=== PATIENT | female | born 1940 | race Caucasian/White ===

== ENCOUNTER 2017-10-24 20:14 | Emergency (ER) | payer MEDICARE, OTHER ==
[~2017-10-24] VITALS: Ht 162.6 cm; Wt 79.4 kg
[~2017-10-24 20:14] MED LIST: ALBU90OI INH; ALPR.25 PO; Bactrim Ds Tab1 EACH PO; CHOL10002 PO; ESCI10 PO; ESCI5 PO; HYDACE5325 PO; LEVFLO500 PO; LEVSOD50 PO; LITH300C PO; METF500 PO; Mupirocin22 GM TOP; NYST100SU MT; Norco 5-325 Ta1 EACH PO; OXYACE5T PO; PROM25 PO; RABE20 PO; RXLORA1 PO; RXOXYACE PO; TRAM50 PO; TRAZ50 PO
[2017-10-24 20:46] LABS: BASOPHILS ABSOLUTE AUTO 0.02 K/mm3 (0.00-0.23); BASOPHILS PERCENT AUTO 0 % (0-2); EOSINOPHILS ABSOLUTE AUTO 0.11 K/mm3 (0.00-0.68); EOSINOPHILS PERCENT AUTO 1 % (0-6); Hematocrit 39.4 % (33.0-51.0); Hemoglobin 12.9 g/dL (11.5-16.0); IMMATURE GRAN ABSOLUTE AUTO 0.04 K/mm3 (0.00-0.10); IMMATURE GRAN PERCENT AUTO 0 % (0-1); LYMPHOCYTES ABSOLUTE AUTO 1.74 K/mm3 (0.84-5.20); LYMPHOCYTES PERCENT AUTO 16 % (21-46); MONOCYTES ABSOLUTE AUTO 0.55 K/mm3 (0.16-1.47); MONOCYTES PERCENT AUTO 5 % (4-13); Mean Corpuscular HGB 29.5 pg (26.0-34.0); Mean Corpuscular HGB Conc 32.7 g/dL (31.5-36.5); Mean Corpuscular Volume 90 fL (80-100); Mean Platelet Volume 9.8 fL (9.1-12.4); NEUTROPHILS ABSOLUTE AUTO 8.25 K/mm3 (1.96-9.15); NEUTROPHILS PERCENT AUTO 77 % (41-73); Platelet Count 276 K/mm3 (150-400); RDW Coefficient Variation 13.3 % (11.7-14.2); RDW Standard Deviation 43.9 fL (35.1-46.3); Red Blood Cell Count 4.38 M/mm3 (3.80-5.20); White Blood Cell Count 10.71 K/mm3 (4.00-11.30)
[2017-10-24 21:07] LABS: Alanine Aminotransfer (ALT/SGP 24 U/L (12-78); Albumin, Blood 3.9 g/dL (3.4-5.0); Alk Phos 110 U/L (50-136); Anion Gap 7 mmol/L (6-16); Aspartate Aminotrans (AST/SGOT 15 U/L (12-37); Bilirubin, Total 0.6 mg/dL (0.1-1.0); Blood Urea Nitrogen 12 mg/dL (8-24); Bun/Creatinine Ratio 14.3 (12.0-20.0); CO2, Blood 24 mmol/L (21-32); Calcium, Blood 8.9 mg/dL (8.5-10.1); Chloride, Blood 106 mmol/L (98-108); Creatinine, Blood 0.84 mg/dL (0.40-1.00); Globulin, Blood 3.9 g/dL (2.2-4.0); Glomerular Filtration Rate >60 (60-); Glucose, Blood 183 mg/dL (70-99); Sodium, Blood 137 mmol/L (136-145); Total Protein, Blood 7.8 g/dL (6.4-8.2); Troponin I <0.015 ng/mL (0.000-0.040)
[2017-10-24 22:44] LABS: Source, Urine Clean Catch
[2017-10-24 22:49] LABS: Bilirubin, Urine Neg (Neg); Blood, Urine Neg (Neg); Glucose Qualitative, Urine Neg (Neg); Ketones, Urine 1+ (Neg); Leukocyte Esterase, Urine Neg (Neg); Nitrite, Urine Neg (Neg); Protein, Urine Neg (Neg); Urobilinogen, Urine NORM (Normal)
[2017-10-24 22:59] LABS: Appearance, Urine Clear (Clear); Color, Urine Yellow (P-Yellow)
[2017-10-24] MEDS ORDERED: Vistaril25 MG PO (23:57)
[2017-10-24] MEDS ORDERED: Protonix40 MG PO (23:57)
== END 2017-10-25 00:19 | disposition home or self-care (01) ==
LOC: ER 20:14
PROVIDERS: Emergency Medicine
DX: F41.0 Panic disorder [episodic paroxysmal anxiety] (principal); I10 Essential (primary) hypertension; F31.9 Bipolar disorder, unspecified; E03.9 Hypothyroidism, unspecified; Z88.0 Allergy status to penicillin; Z88.1 Allergy status to other antibiotic agents; Z79.84 Long term (current) use of oral hypoglycemic drugs; Z79.899 Other long term (current) drug therapy; K21.9 Gastro-esophageal reflux disease without esophagitis; R07.9 Chest pain, unspecified; Z88.8 Allergy status to other drugs, medicaments and biological substances
CPT/HCPCS: 36415; 71046; 80053; 81003; 84484; 85025; 93005; 93010; 96374; 99283; J2060

== ENCOUNTER 2017-10-26 14:37 | Emergency (ER) | payer MEDICARE, OTHER ==
[~2017-10-26] VITALS: Ht 162.6 cm; Wt 79.4 kg
[~2017-10-26 14:37] MED LIST changes: +Protonix40 MG PO; +Vistaril25 MG PO
== END 2017-10-26 18:46 | disposition home or self-care (01) ==
LOC: ER 14:37
DX: S00.83XA Contusion of other part of head, initial encounter (principal); W18.30XA Fall on same level, unspecified, initial encounter; Z88.8 Allergy status to other drugs, medicaments and biological substances; Z88.1 Allergy status to other antibiotic agents; Z79.899 Other long term (current) drug therapy; Z79.84 Long term (current) use of oral hypoglycemic drugs; E11.9 Type 2 diabetes mellitus without complications; F31.9 Bipolar disorder, unspecified; E03.9 Hypothyroidism, unspecified; I10 Essential (primary) hypertension
CPT/HCPCS: 70450; 72125; 99284

== ENCOUNTER 2018-01-12 13:17 | Emergency (ER) | payer MEDICARE, OTHER ==
[~2018-01-12] VITALS: Ht 162.6 cm; Wt 77.1 kg
[2018-01-12] MEDS ORDERED: Zofran Odt8 MG SL (14:53)
[2018-01-12] MEDS ORDERED: Ultram50 MG PO (14:53)
[2018-01-12] MEDS ORDERED: METPRE4DP PO (14:53)
== END 2018-01-12 14:57 | disposition home or self-care (01) ==
LOC: ER 13:17
DX: M54.31 Sciatica, right side (principal); Z88.1 Allergy status to other antibiotic agents; Z88.8 Allergy status to other drugs, medicaments and biological substances; Z79.899 Other long term (current) drug therapy; Z79.84 Long term (current) use of oral hypoglycemic drugs; E11.9 Type 2 diabetes mellitus without complications; I10 Essential (primary) hypertension; E03.9 Hypothyroidism, unspecified; F31.9 Bipolar disorder, unspecified; F32.9 Major depressive disorder, single episode, unspecified
CPT/HCPCS: 96372; 99283; J3010

== ENCOUNTER 2019-01-14 11:05 | Emergency (ER) | payer MEDICARE, OTHER ==
[~2019-01-14] VITALS: Ht 167.6 cm; Wt 82.5 kg
[~2019-01-14 11:05] MED LIST changes: +METPRE4DP PO; +Ultram50 MG PO; +Zofran Odt8 MG SL
== END 2019-01-14 12:53 | disposition home or self-care (01) ==
LOC: ER 11:05
DX: S00.12XA Contusion of left eyelid and periocular area, initial encounter (principal); M25.561 Pain in right knee; E11.9 Type 2 diabetes mellitus without complications; I10 Essential (primary) hypertension; E03.9 Hypothyroidism, unspecified; W01.0XXA Fall on same level from slipping, tripping and stumbling without subsequent striking against object, initial encounter
CPT/HCPCS: 70450; 93005; 93010; 99284-25

== ENCOUNTER 2020-04-17 04:29 | Emergency (ER) | payer MEDICARE, OTHER ==
[~2020-04-17] VITALS: Ht 162.6 cm; Wt 76.2 kg
[~2020-04-17 04:29] MED LIST changes: +IBUP600 PO; +OMEPRAZOLE MAGN20 MG PO
[2020-04-17] MEDS ORDERED: LIDO700A20 TOP (06:44)
[2020-04-17] MEDS ORDERED: PRED20 PO (06:44)
[2020-04-20] MEDS ORDERED: Percocet 5-3251 EACH PO (08:44)
[2020-05-01] MEDS ORDERED: KETO10 PO (05:35)
== END 2020-04-17 07:08 | disposition home or self-care (01) ==
LOC: ER 04:29
DX: M25.552 Pain in left hip (principal); Z88.0 Allergy status to penicillin; Z88.1 Allergy status to other antibiotic agents; Z88.8 Allergy status to other drugs, medicaments and biological substances; Z79.84 Long term (current) use of oral hypoglycemic drugs; Z79.899 Other long term (current) drug therapy; E11.9 Type 2 diabetes mellitus without complications; I10 Essential (primary) hypertension; E03.9 Hypothyroidism, unspecified; F31.9 Bipolar disorder, unspecified
CPT/HCPCS: 72192; 96372; 99283-25; A9270; J1885

== ENCOUNTER 2020-05-24 13:50 | Emergency (ER) | payer MEDICARE, OTHER ==
[~2020-05-24] VITALS: Ht 162.6 cm; Wt 76.2 kg
[~2020-05-24 13:50] MED LIST changes: +KETO10 PO; +LIDO700A20 TOP; +PRED20 PO; +Percocet 5-3251 EACH PO
[2020-05-24 14:42] LABS: BASOPHILS ABSOLUTE AUTO 0.04 K/mm3 (0.00-0.23); BASOPHILS PERCENT AUTO 0 % (0-2); EOSINOPHILS ABSOLUTE AUTO 0.15 K/mm3 (0.00-0.68); EOSINOPHILS PERCENT AUTO 1 % (0-6); Hematocrit 42.7 % (33.0-51.0); Hemoglobin 13.9 g/dL (11.5-16.0); IMMATURE GRAN ABSOLUTE AUTO 0.04 K/mm3 (0.00-0.10); IMMATURE GRAN PERCENT AUTO 0 % (0-1); LYMPHOCYTES ABSOLUTE AUTO 2.04 K/mm3 (0.84-5.20); LYMPHOCYTES PERCENT AUTO 17 % (21-46); MONOCYTES ABSOLUTE AUTO 0.69 K/mm3 (0.16-1.47); MONOCYTES PERCENT AUTO 6 % (4-13); Mean Corpuscular HGB 29.8 pg (26.0-34.0); Mean Corpuscular HGB Conc 32.6 g/dL (31.5-36.5); Mean Corpuscular Volume 92 fL (80-100); NEUTROPHILS ABSOLUTE AUTO 8.94 K/mm3 (1.96-9.15); NEUTROPHILS PERCENT AUTO 75 % (41-73); Platelet Count 262 K/mm3 (150-400); RDW Coefficient Variation 12.6 % (11.7-14.2); RDW Standard Deviation 42.7 fL (35.1-46.3); Red Blood Cell Count 4.66 M/mm3 (3.80-5.20)
[2020-05-24 15:04] LABS: Albumin, Blood 3.6 g/dL (3.4-5.0); Albumin/Globulin Ratio 0.9 (0.8-1.8); Bilirubin, Total 0.3 mg/dL (0.1-1.0); Bun/Creatinine Ratio 31.1 (12.0-20.0); Calcium, Blood 9.3 mg/dL (8.5-10.1); Globulin, Blood 3.9 g/dL (2.2-4.0); Potassium, Blood 4.9 mmol/L (3.5-5.5); Total Protein, Blood 7.5 g/dL (6.4-8.2)
[2020-05-24] MEDS ORDERED: FURO20 PO (15:54)
[2020-05-24] MEDS ORDERED: MECL25 PO (15:54)
[2020-05-24 16:35] LABS: Free Thyroxine 2.03 ng/dL (0.70-1.60)
[2020-05-24 16:36] LABS: Thyroid Stimulating Hormone 3.11 uIU/mL (0.360-4.800)
[2020-05-24 17:01] LABS: Lithium 0.45 mmol/L (0.60-1.20)
[2020-05-24] MEDS ORDERED: Valium5 MG PO (17:22)
[2020-05-24] MEDS ORDERED: Transderm-Scop1 EACH TOP (17:22)
[2020-05-24] MEDS ORDERED: Reglan10 MG PO (17:22)
[2020-05-24] MEDS ORDERED: Pepcid20 MG PO (17:36)
== END 2020-05-24 17:58 | disposition home or self-care (01) ==
LOC: ER 13:50
PROVIDERS: Physician Assistant
DX: R42 Dizziness and giddiness (principal); R11.2 Nausea with vomiting, unspecified; R51 Headache; E11.9 Type 2 diabetes mellitus without complications; E03.9 Hypothyroidism, unspecified; I10 Essential (primary) hypertension; F31.9 Bipolar disorder, unspecified; Z88.1 Allergy status to other antibiotic agents; Z88.8 Allergy status to other drugs, medicaments and biological substances; Z79.84 Long term (current) use of oral hypoglycemic drugs; Z79.899 Other long term (current) drug therapy
CPT/HCPCS: 36415; 70450; 80053; 80178; 83690; 84439; 84443; 85025; 96374; 96375; 99284-25; J1200; J2765

== ENCOUNTER 2020-06-01 20:45 | Emergency (ER) | payer MEDICARE, OTHER ==
[~2020-06-01] VITALS: Ht 162.6 cm; Wt 76.2 kg
[~2020-06-01 20:45] MED LIST changes: +FURO20 PO; +MECL25 PO; +Pepcid20 MG PO; +Reglan10 MG PO; +Transderm-Scop1 EACH TOP; +Valium5 MG PO
== END 2020-06-01 23:33 | disposition home or self-care (01) ==
LOC: ER 20:45
DX: S01.01XA Laceration without foreign body of scalp, initial encounter (principal); M54.5 Low back pain; E11.9 Type 2 diabetes mellitus without complications; E03.9 Hypothyroidism, unspecified; I10 Essential (primary) hypertension; F31.9 Bipolar disorder, unspecified; Z88.0 Allergy status to penicillin; Z88.1 Allergy status to other antibiotic agents; Z88.8 Allergy status to other drugs, medicaments and biological substances; Z79.84 Long term (current) use of oral hypoglycemic drugs; Z79.899 Other long term (current) drug therapy; W01.0XXA Fall on same level from slipping, tripping and stumbling without subsequent striking against object, initial encounter
CPT/HCPCS: 12001; 70450; 72125; 72220; 99284-25; A9270; A9270-GY

== ENCOUNTER 2020-06-05 16:09 | Observation (INO) | payer MEDICARE, OTHER ==
[~2020-06-05] VITALS: Ht 162.6 cm; Wt 76.2 kg
[2020-06-05 17:16] LABS: BASOPHILS ABSOLUTE AUTO 0.05 K/mm3 (0.00-0.23); BASOPHILS PERCENT AUTO 1 % (0-2); EOSINOPHILS ABSOLUTE AUTO 0.36 K/mm3 (0.00-0.68); EOSINOPHILS PERCENT AUTO 3 % (0-6); Hematocrit 40.6 % (33.0-51.0); Hemoglobin 13.1 g/dL (11.5-16.0); IMMATURE GRAN ABSOLUTE AUTO 0.03 K/mm3 (0.00-0.10); IMMATURE GRAN PERCENT AUTO 0 % (0-1); LYMPHOCYTES ABSOLUTE AUTO 1.41 K/mm3 (0.84-5.20); LYMPHOCYTES PERCENT AUTO 13 % (21-46); MONOCYTES ABSOLUTE AUTO 0.66 K/mm3 (0.16-1.47); MONOCYTES PERCENT AUTO 6 % (4-13); Mean Corpuscular HGB 29.5 pg (26.0-34.0); Mean Corpuscular HGB Conc 32.3 g/dL (31.5-36.5); Mean Corpuscular Volume 91 fL (80-100); Mean Platelet Volume 9.8 fL (9.1-12.4); NEUTROPHILS PERCENT AUTO 77 % (41-73); Platelet Count 250 K/mm3 (150-400); RDW Coefficient Variation 12.5 % (11.7-14.2); RDW Standard Deviation 41.6 fL (35.1-46.3); Red Blood Cell Count 4.44 M/mm3 (3.80-5.20); White Blood Cell Count 11.01 K/mm3 (4.00-11.30)
[2020-06-05 17:37] LABS: Alanine Aminotransfer (ALT/SGP 22 U/L (12-78); Albumin, Blood 3.3 g/dL (3.4-5.0); Albumin/Globulin Ratio 0.9 (0.8-1.8); Alk Phos 92 U/L (50-136); Anion Gap 4 mmol/L (6-16); Aspartate Aminotrans (AST/SGOT 13 U/L (12-37); Bilirubin, Total 0.3 mg/dL (0.1-1.0); Blood Urea Nitrogen 14 mg/dL (8-24); Bun/Creatinine Ratio 19.6 (12.0-20.0); CO2, Blood 24 mmol/L (21-32); Chloride, Blood 107 mmol/L (98-108); Creatinine, Blood 0.72 mg/dL (0.40-1.00); Globulin, Blood 3.7 g/dL (2.2-4.0); Glomerular Filtration Rate >60 (60-); Glucose, Blood 273 mg/dL (70-99); Potassium, Blood 4.3 mmol/L (3.5-5.5); Sodium, Blood 135 mmol/L (136-145)
[2020-06-05 17:56] LABS: Source, Urine Clean Catch
[2020-06-05 17:58] LABS: Bilirubin, Urine Neg (Neg); Blood, Urine Neg (Neg); Glucose Qualitative, Urine 2+ (Neg); Ketones, Urine Neg (Neg); Leukocyte Esterase, Urine 1+ (Neg); Nitrite, Urine Neg (Neg); Protein, Urine Neg (Neg); Specific Gravity, Urine 1.005 (1.003-1.022); Urobilinogen, Urine NORM (Normal)
[2020-06-05 18:05] LABS: Appearance, Urine Clear (Clear); Color, Urine Yellow (P-Yellow)
[2020-06-05 18:06] LABS: Bacteria Few /hpf; Red Blood Cells, Urine 0-2 /hpf (0-2); Squamous Epithelial Cells Few /hpf (Few)
[2020-06-05] MEDS ORDERED: DIAZ5 PO (23:30)
--- NOTE | 2020-06-06 01:20 | NUR ---
PATIENT IS A NEW ADMIT FROM THE ED. THREE PERSON TRANSFER FROM [facility] TO BED. PATIENT REPORTS SHE WOULD NOT BE ABLE TO WALK WITH VERTIGO BUT OKAY IN BED OR STAND PIVOT TO [facility] [place]. AXOX 3. TELEMETRY PLACED AND TECH REPORTS NSR 65. NS STARTED INFUSING AT 75mL/HR X ONE BAG. DENIES PAIN, SOB, AND N/V. ORIENTED TO ROOM AND CALL LIGHT SYSTEM. REPORTS SHE IS ANXIOUS AT TIMES. MRI FORM FILLED OUT AND FAXED. FOUR BLADIMIR REPORTED AND NOTED IN BACK OF HEAD FROM PREVIOUS FALL. DENIES TV AND WANTS TO SLEEP. CALL LIGHT IN REACH AND BED ALARM ACTIVATED.
--- NOTE | 2020-06-06 04:33 | NUR ---
SHIFT SUMMARY PATIENT REPORTS VERTIGO WITH MOVEMENT OF GETTING UP IN BED. MINIMAL MOVEMENT TO USE BSC WITH ONE ASSIST IS OKAY AND NOT ABLE TO AMBULATE AT THIS TIME. AXOX 4. PIV REMAINS INTACT. AIRCRAFT INSTRUMENT ENGINEER REPORTS NSR 65. NS INFUSING AT 75 mL/HR X ONE BAG. MRI FORM FILLED OUT AND FAXED IN. FOUR BLADIMIR TO BACK OF HEAD REPORTED FROM PREVIOUS FALL AND CONFIRMED. SCHEDULE ANTIVERT 25 MG PO GIVEN PER EMAR. DENIES PAIN, SOB, AND N/V. AFEBRILE. COOPERATIVE WITH CARE. CALL LIGHT N REACH. BED IN LOWEST POSITION AND ALARM ACTIVATED. WILL CONTINUE TO MONITOR UNTIL DAY SHIFT NURSE ASSUMES CARE.
[2020-06-06 05:32] LABS: BASOPHILS ABSOLUTE AUTO 0.03 K/mm3 (0.00-0.23); BASOPHILS PERCENT AUTO 0 % (0-2); EOSINOPHILS ABSOLUTE AUTO 0.34 K/mm3 (0.00-0.68); EOSINOPHILS PERCENT AUTO 3 % (0-6); Hematocrit 39.9 % (33.0-51.0); IMMATURE GRAN ABSOLUTE AUTO 0.04 K/mm3 (0.00-0.10); IMMATURE GRAN PERCENT AUTO 0 % (0-1); LYMPHOCYTES ABSOLUTE AUTO 1.57 K/mm3 (0.84-5.20); LYMPHOCYTES PERCENT AUTO 15 % (21-46); MONOCYTES ABSOLUTE AUTO 0.81 K/mm3 (0.16-1.47); MONOCYTES PERCENT AUTO 8 % (4-13); Mean Corpuscular HGB 29.7 pg (26.0-34.0); Mean Corpuscular HGB Conc 32.6 g/dL (31.5-36.5); Mean Corpuscular Volume 91 fL (80-100); Mean Platelet Volume 9.8 fL (9.1-12.4); NEUTROPHILS ABSOLUTE AUTO 7.79 K/mm3 (1.96-9.15); NEUTROPHILS PERCENT AUTO 74 % (41-73); Platelet Count 214 K/mm3 (150-400); RDW Coefficient Variation 12.4 % (11.7-14.2); Red Blood Cell Count 4.37 M/mm3 (3.80-5.20); White Blood Cell Count 10.58 K/mm3 (4.00-11.30)
[2020-06-06 06:00] LABS: Alanine Aminotransfer (ALT/SGP 25 U/L (12-78); Albumin, Blood 3.1 g/dL (3.4-5.0); Albumin/Globulin Ratio 0.9 (0.8-1.8); Alk Phos 95 U/L (50-136); Anion Gap 3 mmol/L (6-16); Aspartate Aminotrans (AST/SGOT 24 U/L (12-37); Bilirubin, Total 0.3 mg/dL (0.1-1.0); Blood Urea Nitrogen 11 mg/dL (8-24); Bun/Creatinine Ratio 13.5 (12.0-20.0); CO2, Blood 27 mmol/L (21-32); Calcium, Blood 9.2 mg/dL (8.5-10.1); Chloride, Blood 108 mmol/L (98-108); Creatinine, Blood 0.82 mg/dL (0.40-1.00); Globulin, Blood 3.6 g/dL (2.2-4.0); Glomerular Filtration Rate >60 (60-); Glucose, Blood 235 mg/dL (70-99); Potassium, Blood 4.2 mmol/L (3.5-5.5); Sodium, Blood 138 mmol/L (136-145); Total Protein, Blood 6.7 g/dL (6.4-8.2)
[2020-06-06 07:03] LABS: Lithium 1.35 mmol/L (0.60-1.20)
--- NOTE | 2020-06-06 08:19 | NUR ---
PT BACK PAIN/LITHIUM CONCERNS PT CO BACK PAIN. RELAYED PT CONCERN TO DR. IBRAHIM. TYLENOL ORDERED. WILL CONTINUE TO MONITOR.
[2020-06-06] MEDS ORDERED: LITH300C PO (17:26)
--- NOTE | 2020-06-06 18:17 | NUR ---
SHIFT SUMMARY PT HAD MRI COMPLETED THIS SHIFT. PT C/O DIZZINESS PRIOR TO DINNER WHEN GETTING UP FROM BED AND INTO CHAIR. PT STATES SHE ALSO DEVELOPED A PASTRANA AT THIS TIME. TYLENOL GIVEN FOR PASTRANA. ANTIVERT GIVEN SCHEDULED. NO OTHER C/O DIZZINESS T/O SHIFT, EVEN WHEN UP TO CHAIR FOR LUNCH AND DINNER. PT CONCERNED ABOUT BLADIMIR IN BACK OF HEAD AND THE NEED FOR THEM TO COME OUT. NO OTHER CHANGES IN ASSESSMENT AT THIS TIME. VS REVIEWED. WILL CONTINUE TO MONITOR UNTIL TURNOVER IS COMPLETE.
[2020-06-06 18:20] LABS: Lithium 1.13 mmol/L (0.60-1.20)
--- NOTE | 2020-06-06 18:39 | NUR ---
ANXIETY PT EXPRESSED SOME ANXIOUS FEELINGS THIS EVENING. PT ASKING FOR SOMETHING TO HELP CALM HER NERVES. DR. IBRAHIM NOTIFIED AND ORDERED A OT ATARAX DOSE.
--- NOTE | 2020-06-07 04:18 | NUR ---
SHIFT SUMMARY ADMITTED FOR VERTIGO. FULL CODE. HX OF FALLS AT HOME, POSSIBLE CONCUSSION. PT WAS VERY ANXIOUS FIRST HALF OF SHIFT. FAMILY INFORMS ME THAT THERE ARE PSYCH ISSUES: BIPOLAR, ANXIETY, DEPRESSION. HER LITHIUM LEVELS WERE ELEVATED ON ADMIT, NOW WNL. TELEMETRY: NSR @ 60 BPM. IV FLUIDS INFUSING ORDERED. CT & MRI OF THE HEAD NEGATIVE. SHE LIVES ALONE, WHICH CONCERNS HER FAMILY GREATLY. THEY DO WORRY SHE IS INCORRECTLY TAKING HER MEDS.
[2020-06-07 05:46] LABS: Anion Gap 4 mmol/L (6-16); Blood Urea Nitrogen 14 mg/dL (8-24); Bun/Creatinine Ratio 16.2 (12.0-20.0); CO2, Blood 25 mmol/L (21-32); Calcium, Blood 8.9 mg/dL (8.5-10.1); Chloride, Blood 108 mmol/L (98-108); Creatinine, Blood 0.87 mg/dL (0.40-1.00); Glomerular Filtration Rate >60 (60-); Glucose, Blood 221 mg/dL (70-99); Phosphorus, Blood 3.4 mg/dL (2.5-4.9); Potassium, Blood 4.1 mmol/L (3.5-5.5); Sodium, Blood 137 mmol/L (136-145)
[2020-06-07 05:52] LABS: Lithium 0.86 mmol/L (0.60-1.20)
--- NOTE | 2020-06-07 17:27 | NUR ---
SHIFT SUMMARY PT A&OX4. IV SALINE LOCKED. HEART RHYTHM IS SR @ 60 BPM. PT IS A 1 PERSON SBA TO THE [facility] [place]. PT TOLERATED AMBULATION WELL. CALLS APPROPRIATELY. LITHIUM HAS BEEN RESTARTED PER PROVIDER ORDER. PT IS EXPECTED TO DC TO SNF TOMORROW ([facility]). 4 BLADIMIR IN BACK OF HEAD REMAIN C/D/I WITH NO SIGNS OF INFECTION. PROVIDER NOTE STATES THE STAMPLES CAN BE REMOVED 7 DAYS POST INSERTION (06/09/2020). GRANDDAUGHTER AT BEDSIDE TODAY. OT CONCERNED ABOUT PT RETURNING TO HOME, HOME COMPANION NOTIFIED REGARDING CONCERNS.
--- NOTE | 2020-06-08 05:16 | NUR ---
BEER STILL RUNNER COMPOUNDER SUMMARY PT AXO 4 PLEASANT/COOPERATIVE. PT BEGAN SHIFT W C/O LL LEG PAIN SO TYLENOL WAS GIVEN AND PT REPORTED MUCH RELIEF. LOWER LEFT LEG WAS ASSESSED, PT DENIED PAIN W PALPATION AND LEG SHOWED NO SIGNS OF DVT. PT SLEPT MOST OF THE NIGHT AND IS CURRENTLY SLEEPING COMFORTABLY W CALL LIGHT WITHIN REACH.
--- NOTE | 2020-06-08 11:23 | NUR ---
BLADIMIR FROM R PARIETAL SCALP REVIEW FROM PREVIOUS ER ADMISSION SHOWS BLADIMIR PLACED TO R PARIETAL SCALP ON 06/01. NOTE STATES MAY REMOVE IN 7 DAYS. LACERATION APPEARS TO BE HEALING. RECEIVED TELEPHONE ORDER FROM DR. IBRAHIM TO REMOVE BLADIMIR. ORDER UPDATED.
--- NOTE | 2020-06-08 11:41 | NUR ---
Patient is sitting up in bed and alert. Patient immediately tells me about her medical issues, her Jehovah'S Witness aleksandra and the stress and depression she has been struggling with. Patient shares her personal issues including but not limited to the of her and her son and her oldest son's current christiansen with a rare cancer. Yarelis also talks about her fear of losing her independence but also is fearful of another fall. I listen empathically, reinforce helpful attitudes and practices and provide anxiety containment, grief support, pastoral prison classification counselor and prayer. Patient responds well and shows signs of reduced stress and an elevated mood. I will continue to remian available to patient and family as I help patient with tools for dealing with her depression and anxiety.
--- NOTE | 2020-06-08 11:46 | NUR ---
ADA DIET BLOOD SUGAR WAS > 300 FOR LUNCH, DISCUSSED CHANGING REGULAR DIET TO ADA. DR. IBRAHIM WAS OKAY WITH THIS. ORDER RECEIVED AND DIET UPDATED.
[2020-06-08] MEDS ORDERED: AMLO5 PO (14:22)
--- NOTE | 2020-06-08 14:58 | NUR ---
Discharge Summary A/Ox4, pleasant and cooperative with care. Discharging to [facility]. Report given to receiving RN at . Personal belongings sent with patient. OT worked with patient and assisted with dressing. Four gerri removed from parietal scalp with appliance service representative Elisabet assisting. Patient tolerated procedure well, laceration is scabbed and healing. Pt reports itching in that area. Nystatin applied to breast folds. 1P SBA to BSC. Medicated x 1 for left leg pain. Patient continues to report mild dizziness from lying to sitting position, recovers fairly quickly. Fine crackles noted in bilateral lower bases and right middle lobe. No acute concerns at this time. Discharge packet will be given to cab driver.
== END 2020-06-08 16:08 ==
LOC: ER 16:09 → MEDS 16:10
PROVIDERS: Internal Medicine; Physician Assistant; ADMIT Internal Medicine
DX: R27.0 Ataxia, unspecified (principal); R53.1 Weakness; R42 Dizziness and giddiness; T43.595A Adverse effect of other antipsychotics and neuroleptics, initial encounter; F41.9 Anxiety disorder, unspecified; E11.65 Type 2 diabetes mellitus with hyperglycemia; S06.0X9D Concussion with loss of consciousness of unspecified duration, subsequent encounter; I10 Essential (primary) hypertension; K21.9 Gastro-esophageal reflux disease without esophagitis; E03.9 Hypothyroidism, unspecified; Z91.81 History of falling; Z20.828 Contact with and (suspected) exposure to other viral communicable diseases; Z79.899 Other long term (current) drug therapy; Z88.0 Allergy status to penicillin; Z88.1 Allergy status to other antibiotic agents; Z88.8 Allergy status to other drugs, medicaments and biological substances; Z79.84 Long term (current) use of oral hypoglycemic drugs; F32.9 Major depressive disorder, single episode, unspecified; E86.0 Dehydration
CPT/HCPCS: 36415; 70450; 70551; 80053; 80069; 80178; 81001; 82947; 84443; 85025; 87086; 93005; 93010; 96372; 96374; 96375; 96376; 97110; 97116; 97162; 97166; 97530; 97535; 97535-CO; 99285-25; A9270; A9270-GY; G0378; J0696; J1650; J2405; J7030; U0002

== ENCOUNTER 2020-08-27 07:52 | Inpatient (IN) | payer MEDICARE, OTHER ==
[~2020-08-27] VITALS: Ht 162.6 cm; Wt 79.3 kg
[~2020-08-27 07:52] MED LIST changes: -CHOL10002 PO; +DIAZ5 PO; +VITAMIN D31000 UNI1 PO
[2020-08-27 08:21] LABS: BASOPHILS ABSOLUTE AUTO 0.04 K/mm3 (0.00-0.23); BASOPHILS PERCENT AUTO 0 % (0-2); EOSINOPHILS ABSOLUTE AUTO 0.08 K/mm3 (0.00-0.68); EOSINOPHILS PERCENT AUTO 1 % (0-6); Hemoglobin 12.7 g/dL (11.5-16.0); IMMATURE GRAN ABSOLUTE AUTO 0.09 K/mm3 (0.00-0.10); IMMATURE GRAN PERCENT AUTO 1 % (0-1); LYMPHOCYTES ABSOLUTE AUTO 1.35 K/mm3 (0.84-5.20); LYMPHOCYTES PERCENT AUTO 9 % (21-46); MONOCYTES ABSOLUTE AUTO 0.79 K/mm3 (0.16-1.47); MONOCYTES PERCENT AUTO 5 % (4-13); Mean Corpuscular HGB 30.7 pg (26.0-34.0); Mean Corpuscular HGB Conc 32.6 g/dL (31.5-36.5); Mean Corpuscular Volume 94 fL (80-100); Mean Platelet Volume 9.9 fL (9.1-12.4); NEUTROPHILS ABSOLUTE AUTO 12.29 K/mm3 (1.96-9.15); NEUTROPHILS PERCENT AUTO 84 % (41-73); Platelet Count 254 K/mm3 (150-400); RDW Coefficient Variation 12.5 % (11.7-14.2); Red Blood Cell Count 4.14 M/mm3 (3.80-5.20); White Blood Cell Count 14.64 K/mm3 (4.00-11.30)
[2020-08-27 08:45] LABS: Alanine Aminotransfer (ALT/SGP 165 U/L (12-78); Albumin, Blood 3.5 g/dL (3.4-5.0); Alk Phos 262 U/L (50-136); Anion Gap 6 mmol/L (6-16); Aspartate Aminotrans (AST/SGOT 63 U/L (12-37); Bilirubin, Total 0.6 mg/dL (0.1-1.0); Blood Urea Nitrogen 28 mg/dL (8-24); Bun/Creatinine Ratio 32.3 (12.0-20.0); CO2, Blood 26 mmol/L (21-32); Chloride, Blood 101 mmol/L (98-108); Creatinine, Blood 0.87 mg/dL (0.40-1.00); Globulin, Blood 3.4 g/dL (2.2-4.0); Glomerular Filtration Rate >60 (60-); Glucose, Blood 495 mg/dL (70-99); Potassium, Blood 4.8 mmol/L (3.5-5.5); Sodium, Blood 133 mmol/L (136-145); Total Protein, Blood 6.9 g/dL (6.4-8.2)
[2020-08-27 08:51] LABS: Lithium 0.58 mmol/L (0.60-1.20)
[2020-08-27 08:53] LABS: Bilirubin, Urine Neg (Neg); Blood, Urine 2+ (Neg); Glucose Qualitative, Urine 4+ (Neg); Ketones, Urine 1+ (Neg); Leukocyte Esterase, Urine 2+ (Neg); Nitrite, Urine Neg (Neg); Protein, Urine Neg (Neg); Specific Gravity, Urine 1.005 (1.003-1.022); Urobilinogen, Urine NORM (Normal)
[2020-08-27 09:00] LABS: Appearance, Urine Hazy (Clear); Color, Urine Yellow (P-Yellow)
[2020-08-27 09:01] LABS: Bacteria Few /hpf; Squamous Epithelial Cells Rare /hpf (Few)
[2020-08-27 09:20] LABS: International Normalized Ratio 1.01; Prothrombin Time Results 10.8 Sec (9.7-11.5)
[2020-08-27] MEDS ORDERED: ESCI20 PO (12:37)
[2020-08-27 12:41] LABS: Influenza A, PCR Negative (NEGATIVE); Influenza B, PCR Negative (NEGATIVE); Resp Syncytial Virus, PCR Negative (NEGATIVE); SARS-Cov-2 (COVID-19) PCR, MMC Negative (NEGATIVE)
[2020-08-27] MEDS ORDERED: LAMICTAL25 MG PO (12:47)
[2020-08-27] MEDS ORDERED: FAMO10 PO (12:48)
[2020-08-27] MEDS ORDERED: MAGNESIUM CITR100 MG PO (12:48)
[2020-08-27] MEDS ORDERED: AMLO5 PO (14:11)
--- NOTE | 2020-08-27 17:16 | NUR ---
INFORMED DR MOBLEY OF [facility], HE GAVE VERBAL ORDER FOR 10 UNITS LANTUS HS AND TO ADD LAMOTRIGINE 25MG HS TO EMAR PER PT'S HOME MED REGIMEN
[2020-08-27] MEDS ORDERED: LAMO25 PO (17:17)
--- NOTE | 2020-08-27 18:40 | NUR ---
SHIFT SUMMARY NEVA ARRIVED FROM THE ER ABOUT 230 PM. SBA TO BR. VERY MINIMAL PAIN IN ABD PER HER REPORT, NAUSEA IS ALSO MUCH BETTER. CB 422, DR MOBLEY CALLED, HE IS COVERING EFM AFTER 5PM. TELE SHOWS AFIB. CALL LIGHT IN REACH, WCTM
--- NOTE | 2020-08-27 22:21 | NUR ---
2000 79 Y/O FEMALE RESTING COMFORTABLY IN BED; CHEERFUL; DENIES PAIN OR NAUSEA.
--- NOTE | 2020-08-28 03:38 | NUR ---
SHIFT SUMMARY: 79 Y/O FEMALE RESTED COMFORTABLY ALL SHIFT; DENIES PAIN OR NAUSEA; ABLE TRANSFER AND AMBULATE VIA WALKER TO BATHROOM AND BACK X 1 STANDBY ASSIST; PTS CBG 337 AT 2100 AND RANDOMLY RECHECKED AT [phone]; ALERT AND ORIENTED X 4; BED ALARM APPLIED FOR SAFETY, BED LOW POSITION WITH CALL LIGHT AT SIDE.
[2020-08-28 05:09] LABS: BASOPHILS ABSOLUTE AUTO 0.03 K/mm3 (0.00-0.23); BASOPHILS PERCENT AUTO 0 % (0-2); EOSINOPHILS ABSOLUTE AUTO 0.11 K/mm3 (0.00-0.68); EOSINOPHILS PERCENT AUTO 1 % (0-6); Hematocrit 38.5 % (33.0-51.0); Hemoglobin 11.8 g/dL (11.5-16.0); IMMATURE GRAN ABSOLUTE AUTO 0.08 K/mm3 (0.00-0.10); IMMATURE GRAN PERCENT AUTO 1 % (0-1); LYMPHOCYTES ABSOLUTE AUTO 1.33 K/mm3 (0.84-5.20); LYMPHOCYTES PERCENT AUTO 10 % (21-46); MONOCYTES PERCENT AUTO 5 % (4-13); Mean Corpuscular HGB 29.6 pg (26.0-34.0); Mean Corpuscular HGB Conc 30.6 g/dL (31.5-36.5); Mean Corpuscular Volume 97 fL (80-100); Mean Platelet Volume 10.1 fL (9.1-12.4); NEUTROPHILS ABSOLUTE AUTO 10.73 K/mm3 (1.96-9.15); NEUTROPHILS PERCENT AUTO 83 % (41-73); Platelet Count 219 K/mm3 (150-400); RDW Coefficient Variation 12.3 % (11.7-14.2); RDW Standard Deviation 44.1 fL (35.1-46.3); Red Blood Cell Count 3.98 M/mm3 (3.80-5.20); White Blood Cell Count 12.88 K/mm3 (4.00-11.30)
[2020-08-28 05:39] LABS: Alanine Aminotransfer (ALT/SGP 160 U/L (12-78); Albumin, Blood 2.8 g/dL (3.4-5.0); Alk Phos 213 U/L (50-136); Anion Gap 4 mmol/L (6-16); Aspartate Aminotrans (AST/SGOT 67 U/L (12-37); Bilirubin, Total 0.4 mg/dL (0.1-1.0); Blood Urea Nitrogen 26 mg/dL (8-24); Bun/Creatinine Ratio 27.5 (12.0-20.0); CO2, Blood 27 mmol/L (21-32); Calcium, Blood 8.7 mg/dL (8.5-10.1); Chloride, Blood 102 mmol/L (98-108); Creatinine, Blood 0.95 mg/dL (0.40-1.00); Globulin, Blood 2.9 g/dL (2.2-4.0); Glomerular Filtration Rate >60 (60-); Glucose, Blood 391 mg/dL (70-99); Potassium, Blood 4.9 mmol/L (3.5-5.5); Sodium, Blood 133 mmol/L (136-145); Total Protein, Blood 5.7 g/dL (6.4-8.2)
[2020-08-28 11:52] LABS: Lithium 0.38 mmol/L (0.60-1.20)
--- NOTE | 2020-08-28 18:40 | NUR ---
SHIFT SUMMARY NEVA DENIED PAIN AND NAUSEA THIS SHIFT. CBGS WENT FROM 400 RANGE IN MORNING TO DOWN TO 200 RANGE WITH MEDIUM SLIDING SCALE INSULIN. TELE SHOWED AFIB. SBA TO BR, OFTEN FORGETS TO CALL APPROPRIATELY. TOOK MEDS PRESCRIBED, CALL LIGHT IN REACH, WCTM
--- NOTE | 2020-08-28 21:35 | NUR ---
79 Y/O FEMALE RESTING COMFORTABLY IN BED; CHEERFUL; ALERT AND ORIENTED X 4; DENIES PAIN OR NAUSEA.
--- NOTE | 2020-08-29 03:10 | NUR ---
SHIFT SUMMARY: 79 Y/O FEMALE RESTED COMFORTABLY ALL SHIFT; PT UP VIA WALKER TO BATHROOM AND BACK WITH GAIT SLOW AND STEADY; PT TENDS TO BE VERY IMPULSIVE WITH BED ALARM APPLIED FOR SAFETY (PT VOICED DISLIKE OF BED ALARM WITH THIS NURSE REINFORCING THAT ALARM IS FOR HER SAFETY TO AVOID FALLS SO THAT STAFF CAN ASSIST PT DOES NOT UTILIZE CALL LIGHT WHEN NEEDING TO VOID); DENIES PAIN OR NAUSEA; CBG LAST PM WAS 242; BED LOW POSITION WITH CALL LIGHT AT SIDE.
[2020-08-29 05:31] LABS: Alanine Aminotransfer (ALT/SGP 175 U/L (12-78); Albumin, Blood 3.1 g/dL (3.4-5.0); Albumin/Globulin Ratio 1.1 (0.8-1.8); Alk Phos 232 U/L (50-136); Anion Gap 6 mmol/L (6-16); Aspartate Aminotrans (AST/SGOT 75 U/L (12-37); Bilirubin, Total 0.4 mg/dL (0.1-1.0); Blood Urea Nitrogen 26 mg/dL (8-24); Bun/Creatinine Ratio 29.6 (12.0-20.0); CO2, Blood 24 mmol/L (21-32); Calcium, Blood 8.4 mg/dL (8.5-10.1); Chloride, Blood 107 mmol/L (98-108); Creatinine, Blood 0.88 mg/dL (0.40-1.00); Globulin, Blood 2.9 g/dL (2.2-4.0); Glomerular Filtration Rate >60 (60-); Glucose, Blood 359 mg/dL (70-99); Potassium, Blood 5.1 mmol/L (3.5-5.5); Sodium, Blood 137 mmol/L (136-145)
[2020-08-29 05:53] LABS: BASOPHILS ABSOLUTE AUTO 0.04 K/mm3 (0.00-0.23); BASOPHILS PERCENT AUTO 0 % (0-2); EOSINOPHILS PERCENT AUTO 1 % (0-6); IMMATURE GRAN ABSOLUTE AUTO 0.07 K/mm3 (0.00-0.10); IMMATURE GRAN PERCENT AUTO 1 % (0-1); LYMPHOCYTES ABSOLUTE AUTO 1.17 K/mm3 (0.84-5.20); LYMPHOCYTES PERCENT AUTO 9 % (21-46); MONOCYTES ABSOLUTE AUTO 0.78 K/mm3 (0.16-1.47); MONOCYTES PERCENT AUTO 6 % (4-13); Mean Corpuscular HGB 30.3 pg (26.0-34.0); Mean Corpuscular HGB Conc 31.6 g/dL (31.5-36.5); Mean Corpuscular Volume 96 fL (80-100); Mean Platelet Volume 9.9 fL (9.1-12.4); NEUTROPHILS ABSOLUTE AUTO 11.68 K/mm3 (1.96-9.15); NEUTROPHILS PERCENT AUTO 84 % (41-73); Platelet Count 208 K/mm3 (150-400); RDW Coefficient Variation 12.4 % (11.7-14.2); RDW Standard Deviation 43.8 fL (35.1-46.3); Red Blood Cell Count 3.96 M/mm3 (3.80-5.20); White Blood Cell Count 13.84 K/mm3 (4.00-11.30)
[2020-08-29 09:08] LABS: HBSAG SCREEN Negative (Negative); HEP B CORE AB, TOT Negative (Negative); HEP C VIRUS AB <0.1 (0.0-0.9)
--- NOTE | 2020-08-29 15:55 | NUR ---
Patient is lying in bed and alert. Patient immediately shares with me about her health concerns and her request for a prayer of healing. 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 I provide empathically and provide pastoral counseling psychologist and prayer for healing. Patient responds well and verbalizes gratitude for the visit and prayer. I will continue to remain available to patient and family.
--- NOTE | 2020-08-29 17:03 | NUR ---
SUMMARY PT RESTING QUIETLY IN BED, WAKES EASILY, UP TO THE BATHROOM WITH MIN ASSIST, PT DENIES ANY DIZZINESS OR LIGHT-HEADEDNESS, PT USES THE CALL LIGHT APPROPRIATELY, HOPEFUL TO GO HOME SOON, VSS, WILL CONT TO MONITOR
--- NOTE | 2020-08-30 05:37 | NUR ---
SHIFT SUMMARY- PT. A&OX4, INDEP IN ROOM. HAD NO ACUTE EVENTS OVERNIGHT. RESTED QUIETLY IN BED, NO APPARENT DISTRESS NOTED. PT. ABLE TO MAKE NEEDS KNOWN. VSS. PT. ANTICIPATING D/C TO HOME TODAY. CALL LIGHT WITHIN REACH AND SIDE RAILS UPX2. WILL CONT TO MONITOR.
[2020-08-30 06:17] LABS: BASOPHILS ABSOLUTE AUTO 0.05 K/mm3 (0.00-0.23); BASOPHILS PERCENT AUTO 0 % (0-2); EOSINOPHILS ABSOLUTE AUTO 0.11 K/mm3 (0.00-0.68); EOSINOPHILS PERCENT AUTO 1 % (0-6); Hematocrit 39.3 % (33.0-51.0); Hemoglobin 12.1 g/dL (11.5-16.0); IMMATURE GRAN ABSOLUTE AUTO 0.05 K/mm3 (0.00-0.10); IMMATURE GRAN PERCENT AUTO 0 % (0-1); LYMPHOCYTES ABSOLUTE AUTO 1.12 K/mm3 (0.84-5.20); LYMPHOCYTES PERCENT AUTO 9 % (21-46); MONOCYTES ABSOLUTE AUTO 0.73 K/mm3 (0.16-1.47); MONOCYTES PERCENT AUTO 6 % (4-13); Mean Corpuscular HGB 30.2 pg (26.0-34.0); Mean Corpuscular HGB Conc 30.8 g/dL (31.5-36.5); Mean Corpuscular Volume 98 fL (80-100); Mean Platelet Volume 10.3 fL (9.1-12.4); NEUTROPHILS ABSOLUTE AUTO 10.65 K/mm3 (1.96-9.15); NEUTROPHILS PERCENT AUTO 84 % (41-73); Platelet Count 216 K/mm3 (150-400); RDW Coefficient Variation 12.4 % (11.7-14.2); RDW Standard Deviation 44.8 fL (35.1-46.3); Red Blood Cell Count 4.01 M/mm3 (3.80-5.20); White Blood Cell Count 12.71 K/mm3 (4.00-11.30)
[2020-08-30 06:39] LABS: Alanine Aminotransfer (ALT/SGP 169 U/L (12-78); Alk Phos 234 U/L (50-136); Anion Gap 3 mmol/L (6-16); Aspartate Aminotrans (AST/SGOT 83 U/L (12-37); Bilirubin, Total 0.3 mg/dL (0.1-1.0); Blood Urea Nitrogen 27 mg/dL (8-24); Bun/Creatinine Ratio 28.9 (12.0-20.0); CO2, Blood 28 mmol/L (21-32); Calcium, Blood 8.7 mg/dL (8.5-10.1); Chloride, Blood 105 mmol/L (98-108); Creatinine, Blood 0.94 mg/dL (0.40-1.00); Glomerular Filtration Rate >60 (60-); Glucose, Blood 365 mg/dL (70-99); Potassium, Blood 4.5 mmol/L (3.5-5.5); Sodium, Blood 136 mmol/L (136-145)
[2020-08-30] MEDS ORDERED: AMLO5 PO (12:15)
[2020-08-30] MEDS ORDERED: CEFD300 PO (12:15)
[2020-08-30] MEDS ORDERED: HUMULIN 70100 UNIT/4 SC (12:16)
--- NOTE | 2020-08-30 13:27 | NUR ---
SUMMARY/DISCHARGE PT DISCHARGED TO HOME, PT VERBALIZED UNDERSTANDING OF DISCHARGE INSTRUCTIONS, PT EDUCATED ON HOW TO ADMINISTER INSULIN AND PT DEMONSTRATED, PT TAKEN OUT SAFELY VIA WHEELCHAIR
== END 2020-08-30 13:27 | disposition home or self-care (01) | DRG 872 ==
LOC: ER 07:52 → MEDS 11:23
PROVIDERS: Emergency Medicine; Family Medicine; ADMIT Student in an Organized Health Care Education/Training Program
DX: A41.9 Sepsis, unspecified organism (principal); F31.81 Bipolar II disorder; N12 Tubulo-interstitial nephritis, not specified as acute or chronic; Z20.828 Contact with and (suspected) exposure to other viral communicable diseases; E03.9 Hypothyroidism, unspecified; E11.65 Type 2 diabetes mellitus with hyperglycemia; I10 Essential (primary) hypertension; I48.91 Unspecified atrial fibrillation; K52.9 Noninfective gastroenteritis and colitis, unspecified; G47.33 Obstructive sleep apnea (adult) (pediatric); R76.8 Other specified abnormal immunological findings in serum; N63.0 Unspecified lump in unspecified breast; Z85.42 Personal history of malignant neoplasm of other parts of uterus; Z66 Do not resuscitate
CPT/HCPCS: 0241U; 36415; 71045; 74177; 80053; 80178; 81001; 82947; 83036; 83605; 83690; 85025; 85610; 85730; 86317; 86704; 86708; 86803; 87040; 87086; 87340; 93005; 93010; 96361; 96365; 99285-25; A9270; A9270-GY; J0696; J1650; J2405; J7030; Q9967

== ENCOUNTER 2020-09-15 01:38 | Emergency (ER) | payer MEDICARE, OTHER ==
[~2020-09-15] VITALS: Ht 162.6 cm; Wt 76.2 kg
[~2020-09-15 01:38] MED LIST changes: +AMLO5 PO; +CEFD300 PO; +ESCI20 PO; +FAMO10 PO; +HUMULIN 70100 UNIT/4 SC; +LAMICTAL25 MG PO; +LAMO25 PO; +MAGNESIUM CITR100 MG PO
== END 2020-09-15 02:41 | disposition home or self-care (01) ==
LOC: ER 01:38
DX: J06.9 Acute upper respiratory infection, unspecified (principal); F41.9 Anxiety disorder, unspecified; E11.9 Type 2 diabetes mellitus without complications; I10 Essential (primary) hypertension; E03.9 Hypothyroidism, unspecified; F31.9 Bipolar disorder, unspecified; Z79.4 Long term (current) use of insulin; Z79.899 Other long term (current) drug therapy; Z88.0 Allergy status to penicillin; Z88.1 Allergy status to other antibiotic agents; Z88.8 Allergy status to other drugs, medicaments and biological substances
CPT/HCPCS: 36415; 99283; A9270

== ENCOUNTER 2020-09-18 02:44 | Inpatient (IN) | payer MEDICARE, OTHER ==
[~2020-09-18] VITALS: Ht 162.6 cm; Wt 81.0 kg
[~2020-09-18 02:44] MED LIST changes: +LAMICTAL25 M2 PO; -LAMO25 PO
[2020-09-18 03:13] LABS: BASOPHILS ABSOLUTE AUTO 0.04 K/mm3 (0.00-0.23); BASOPHILS PERCENT AUTO 0 % (0-2); EOSINOPHILS ABSOLUTE AUTO 0.06 K/mm3 (0.00-0.68); EOSINOPHILS PERCENT AUTO 0 % (0-6); Hematocrit 40.9 % (33.0-51.0); Hemoglobin 12.6 g/dL (11.5-16.0); IMMATURE GRAN ABSOLUTE AUTO 0.13 K/mm3 (0.00-0.10); IMMATURE GRAN PERCENT AUTO 1 % (0-1); LYMPHOCYTES ABSOLUTE AUTO 0.83 K/mm3 (0.84-5.20); LYMPHOCYTES PERCENT AUTO 5 % (21-46); MONOCYTES ABSOLUTE AUTO 1.04 K/mm3 (0.16-1.47); MONOCYTES PERCENT AUTO 6 % (4-13); Mean Corpuscular HGB 29.6 pg (26.0-34.0); Mean Corpuscular HGB Conc 30.8 g/dL (31.5-36.5); Mean Corpuscular Volume 96 fL (80-100); Mean Platelet Volume 9.9 fL (9.1-12.4); NEUTROPHILS ABSOLUTE AUTO 15.62 K/mm3 (1.96-9.15); NEUTROPHILS PERCENT AUTO 88 % (41-73); Platelet Count 219 K/mm3 (150-400); RDW Coefficient Variation 12.3 % (11.7-14.2); RDW Standard Deviation 43.4 fL (35.1-46.3); Red Blood Cell Count 4.26 M/mm3 (3.80-5.20); White Blood Cell Count 17.72 K/mm3 (4.00-11.30)
[2020-09-18 03:28] LABS: Alanine Aminotransfer (ALT/SGP 80 U/L (12-78); Albumin, Blood 3.1 g/dL (3.4-5.0); Albumin/Globulin Ratio 0.8 (0.8-1.8); Alk Phos 171 U/L (50-136); Anion Gap 8 mmol/L (6-16); Aspartate Aminotrans (AST/SGOT 25 U/L (12-37); Bilirubin, Total 0.7 mg/dL (0.1-1.0); Blood Urea Nitrogen 16 mg/dL (8-24); Bun/Creatinine Ratio 17.7 (12.0-20.0); CO2, Blood 23 mmol/L (21-32); Calcium, Blood 9.2 mg/dL (8.5-10.1); Chloride, Blood 103 mmol/L (98-108); Globulin, Blood 3.9 g/dL (2.2-4.0); Glomerular Filtration Rate >60 (60-); Glucose, Blood 284 mg/dL (70-99); Magnesium, Blood 1.6 mg/dL (1.6-2.4); Sodium, Blood 134 mmol/L (136-145); Troponin I <0.015 ng/mL (0.000-0.040)
[2020-09-18 04:05] LABS: Influenza A, PCR Negative (NEGATIVE); Influenza B, PCR Negative (NEGATIVE); Resp Syncytial Virus, PCR Negative (NEGATIVE); SARS-Cov-2 (COVID-19) PCR, MMC Negative (NEGATIVE)
[2020-09-18 04:12] LABS: Source, Urine Catheter
[2020-09-18 04:28] LABS: Bilirubin, Urine Neg (Neg); Blood, Urine 1+ (Neg); Glucose Qualitative, Urine 4+ (Neg); Ketones, Urine 1+ (Neg); Leukocyte Esterase, Urine 2+ (Neg); Nitrite, Urine Neg (Neg); Protein, Urine 2+ (Neg); Urobilinogen, Urine NORM (Normal)
[2020-09-18 04:35] LABS: Appearance, Urine Clear (Clear); Color, Urine Yellow (P-Yellow)
[2020-09-18 04:39] LABS: Bacteria Few /hpf; Red Blood Cells, Urine Rare /hpf (0-2); Squamous Epithelial Cells Few /hpf (Few); White Blood Cells, Urine 50-100 /hpf (0-5)
[2020-09-18 05:01] LABS: Lithium 0.54 mmol/L (0.60-1.20)
[2020-09-18] MEDS ORDERED: FURO20 PO (05:34)
[2020-09-18] MEDS ORDERED: ELIQUIS5 MG PO (05:36)
[2020-09-18] MEDS ORDERED: BASAGLAR K100 UNIT/1 SC (05:36)
--- NOTE | 2020-09-18 06:34 | NUR ---
2865 PT ARRIVED TO ROOM FROM ER VIA GURNEY IN STABLE CONDITION. PT REPORTS NAUSEA, GAVE ZOFRAN, PT REPORTS ABD PAIN, GAVE TYLENOL, WILL EVAL FOR EFFECT. PT REPORTS SOB THAT INCREASES WITH EXERTION, ON 2L O2 NC AT 95%. TELE AFIB AT 104. CALL LIGHT IS IN REACH.
--- NOTE | 2020-09-18 07:05 | NUR ---
PT LYING IN BED, REPORTS PAIN AND NAUSEA A LITTLE BETTER, REPORT GIVEN TO ONCOMING SHIFT. NO OTHER CHANGES THIS SHIFT. CALL LIGHT IS IN REACH.
--- NOTE | 2020-09-18 19:56 | NUR ---
SUMMARY PT IS A/O X4, SBA w FWW TO BR. SHE IS WEAK/FATIGUED. DX UTI. SHE STATE NO DYSURIA. STATE LOWER ABD PAIN, DISCUSSED w DR REA, STATE PROBALY D/T CONSTIPATION, ORDER MIRALAX. BMP 344, 2+ BLE EDEMA, DR ARMENTA CONTINUOUS IVF. HX AFIB, TELE MX REPORT RATE 100-110, SHE IS ON ELIQUIS. SHE HAS PERIODS OF ANXIETY/DEPRESSION T/O DAY, HAVE PROVIDED ENCOURAGEMENT/REASSURANCE. PASTORAL CARE CONSULT ORDERED.
--- NOTE | 2020-09-18 22:20 | NUR ---
DURING ASSESSMENT, PT REPORTED "SORES AND PAIN TO CHARY AREA FROM SCALDING HERSELF W/URINE". SHE DESCRIBED THAT SHE OFTEN WEARS HER SAME PANTS TO BED THAT SHE'S WORN ALL DAY AND OCCASIONALLY HAS INCONTINENCE ISSUES. PT SAID SHE'D MENTIONED THIS TO THE ER STAFF AND USES DESITIN CREAM AT HOME BUT IT'S PROGRESSIVELY WORSENED. CHARY AREA WAS OBSERVED AND SHE APPEARS TO HAVE CELLULITIS (RED, HOT, FIRM) EXTENDING FROM HER L.LABIA POSTERIOR TO HER L.BUTTOCK CHEEK ALONG THE MIDLINE. SHE HAS X2 SMALL SCABS TO THE BASE OF EACH BUTTOCKS POSTERIOR TO HER LABIA. PT DOESN'T HAVE ANY RECOLLECTIONS HOW/WHEN THESE SORES DEVELOPED BUT ADMITTED SHE'D RECENTLY "PICKED AT THEM". THERE WAS NO NOTED DOCUMENTATION OF THESE FINDINGS SO WAS MADE AWARE. TOPICAL CREAM LIKELY WOULDN'T BE SUFFICIENT AND STATED PREVIOUSLY RX'D ROCEPHIN SHOULD BE ADEQUATE TX FOR CELLULITIS. SHE IS SCHEDULED TO HAVE A DOSE AT [facility]. HE DIDN'T ORDER ANYTHING NEW AT THIS TIME BUT WANTS TO ENSURE THE DAY HOSPITALIST IS AWARE FOR F/U DIAGNOSTICS AND TREATMENT. WILL DISCUSS W/DAY RN.
--- NOTE | 2020-09-18 23:39 | NUR ---
PASTORAL CARE WAS HERE. FAMILY REMAINS AT BEDSIDE.
[2020-09-19 04:39] LABS: Hematocrit 38.6 % (33.0-51.0); Hemoglobin 12.1 g/dL (11.5-16.0); Mean Corpuscular HGB 29.7 pg (26.0-34.0); Mean Corpuscular HGB Conc 31.3 g/dL (31.5-36.5); Mean Corpuscular Volume 95 fL (80-100); Mean Platelet Volume 10.1 fL (9.1-12.4); Platelet Count 200 K/mm3 (150-400); RDW Coefficient Variation 12.4 % (11.7-14.2); RDW Standard Deviation 43.3 fL (35.1-46.3); Red Blood Cell Count 4.08 M/mm3 (3.80-5.20); White Blood Cell Count 20.87 K/mm3 (4.00-11.30)
[2020-09-19 05:04] LABS: Alanine Aminotransfer (ALT/SGP 121 U/L (12-78); Albumin, Blood 2.6 g/dL (3.4-5.0); Albumin/Globulin Ratio 0.7 (0.8-1.8); Alk Phos 220 U/L (50-136); Anion Gap 6 mmol/L (6-16); Aspartate Aminotrans (AST/SGOT 65 U/L (12-37); BAND PERCENT MAN 25 % (0-8); BASOPHILS PERCENT MAN 0 % (0-2); Bilirubin, Total 0.9 mg/dL (0.1-1.0); Blood Urea Nitrogen 15 mg/dL (8-24); Bun/Creatinine Ratio 18.2 (12.0-20.0); CO2, Blood 25 mmol/L (21-32); Calcium, Blood 8.8 mg/dL (8.5-10.1); Chloride, Blood 104 mmol/L (98-108); Creatinine, Blood 0.82 mg/dL (0.40-1.00); EOSINOPHILS PERCENT MAN 0 % (0-6); Globulin, Blood 3.6 g/dL (2.2-4.0); Glomerular Filtration Rate >60 (60-); Glucose, Blood 175 mg/dL (70-99); LYMPHOCYTES ABSOLUTE MAN 0.41 K/mm3 (0.84-5.20); LYMPHOCYTES PERCENT MAN 2 % (21-46); MONOCYTES ABSOLUTE MAN 0.41 K/mm3 (0.16-1.47); MONOCYTES PERCENT MAN 2 % (4-13); Magnesium, Blood 1.7 mg/dL (1.6-2.4); NEUTROPHILS ABSOLUTE MAN 20.03 K/mm3 (1.96-9.15); Potassium, Blood 3.8 mmol/L (3.5-5.5); SEG NEUTROPHILS PERCENT MAN 71 % (41-73); Sodium, Blood 135 mmol/L (136-145); TOTAL CELLS COUNTED 100; Total Protein, Blood 6.2 g/dL (6.4-8.2)
--- NOTE | 2020-09-19 05:13 | NUR ---
SUMMARY: PT A/OX3, SBA OOB AND SPECIFIES NEEDS. SHE USES CALL LIGHT APPROPRIATELY BUT ALSO CALLS INTO HALLS OFTEN FOR FREQUENT NON ACUTE NEEDS. SNACKS, DRINKS AND WARM BLANKETS PROVIDED PER REQUEST. SHE WAS MEDICATED W/TYLENOL PRN FOR TOLERABLE RELIEF OF PASTRANA, NECK AND ABDO PAIN. PT REPORTED NAUSEA W/ZOFRAN RECEIVED FOR GOOD EFFECT. MIRILAX GIVEN W/HS BOWEL MEDS D/T C/O "FEELING BACKED UP" AND PT HAD A SM.FORMED BM THIS SHIFT. SHE BECOMES VERY ANXIOUS AT TIMES BUT CALMS W/SUPPORT AND REASSURANCE. BLE EDEMA PERSISTS AND PT IS WEAK/FATIGUED, SNFF NEEDED. SHE SPENT THE MAJORITY OF NOCTE ON RA BUT WAS OBSERVED SOB THIS AM W/2L O2 APPLIED FOR COMFORT. PT HAS CHRONIC AFIB ON TELEMETRY. NO ACUTE CHANGES, VSS/AFEBRILE. WCTM AND REPORT TO DAY RN.
--- NOTE | 2020-09-19 16:20 | NUR ---
Patient is lying in bed and alert. Patient immediately asks me if I would pray for her. I ask patient her concerns and what is happening with her. She gets a bit tearful as she shares her fears about and dying. I provide pastoral pastoral counselor and prayer. Patient responds well and shows signs of greater hope and reduced stress. I will continue to remain available to patient and family.
--- NOTE | 2020-09-19 19:13 | NUR ---
SHIFT SUMMARY: PAIN POORLY CONTROLLED. HAVING ISSUES WITH CONSTIPATION; GAVE SUPPOSITORY, MIRALAX, DOCUSATE, METAMUCIL, AND A BROWN COW (PRUNE JUICE/APPLE JUICE/BUTTER MIXTURE) WITH THREE SMALL RESULTS. INDURATED, ERYTHEMATOUS AREA ON L LABIA TO L GLUTEAL CLEFT. APPLIED LIDOCAINE GEL WITH SHORT-LIVED RELIEF. NO EVENTS ON TELEMETRY, AFIB WITH PVC'S RATE OF 80-110. HAD PELVIC CT THIS EVENING. SPIRITUAL CARE VISITED WITH PATIENT. GEN SURG CONSULT PLACED.
--- NOTE | 2020-09-20 02:27 | NUR ---
FAMILY CALLED THEY REQUEST A PHONE CALL FROM THE DAY HOSPITALIST BEFORE ANY PROCEDURES ARE SCHEDULED. DAUGHTER IN LAW, RIKI . PERMISSION SIGNED IN CHART
--- NOTE | 2020-09-20 04:23 | NUR ---
SHIFT SUMMARY ADMITTED FOR UTI W/SEPSIS. FOUND TO HAVE CELLULITIS IN CHARY AREA. DNR CODE. CT OF [place] PERFORMED PREVIOUS SHIFT. D5 1/2 NS INFUSING @ 75 ML/HR. PT IS ANXIOUS AT TIMES THROUGHOUT SHIFT. SHE CAN BE VERBALLY CALMED WITH THERAPEUTIC COMMUNICATION. HX OF BIPOLAR DISORDER. FAMILY WOULD LIKE A CALL IN THE MORNING FROM DAY HOSPITALIST WHEN POSSIBLE. SHE IS ON XARELTO. IV ANTIBIOTICS ARE SCHEDULED. CONSTIPATION HAS BEEN AN ISSUE, BOWEL CARE HAS BEEN STARTED. TELEMETRY: AFIB IN THE 80'S BPM.
[2020-09-20 08:43] LABS: BASOPHILS ABSOLUTE AUTO 0.03 K/mm3 (0.00-0.23); BASOPHILS PERCENT AUTO 0 % (0-2); EOSINOPHILS ABSOLUTE AUTO 0.33 K/mm3 (0.00-0.68); EOSINOPHILS PERCENT AUTO 2 % (0-6); Hematocrit 38.2 % (33.0-51.0); Hemoglobin 11.7 g/dL (11.5-16.0); IMMATURE GRAN ABSOLUTE AUTO 0.22 K/mm3 (0.00-0.10); IMMATURE GRAN PERCENT AUTO 1 % (0-1); LYMPHOCYTES ABSOLUTE AUTO 1.04 K/mm3 (0.84-5.20); LYMPHOCYTES PERCENT AUTO 5 % (21-46); MONOCYTES ABSOLUTE AUTO 0.84 K/mm3 (0.16-1.47); MONOCYTES PERCENT AUTO 4 % (4-13); Mean Corpuscular HGB 29.5 pg (26.0-34.0); Mean Corpuscular HGB Conc 30.6 g/dL (31.5-36.5); Mean Corpuscular Volume 96 fL (80-100); Mean Platelet Volume 9.8 fL (9.1-12.4); NEUTROPHILS ABSOLUTE AUTO 16.76 K/mm3 (1.96-9.15); NEUTROPHILS PERCENT AUTO 87 % (41-73); Platelet Count 227 K/mm3 (150-400); RDW Coefficient Variation 12.4 % (11.7-14.2); RDW Standard Deviation 44.5 fL (35.1-46.3); Red Blood Cell Count 3.97 M/mm3 (3.80-5.20); White Blood Cell Count 19.22 K/mm3 (4.00-11.30)
[2020-09-20 08:58] LABS: Anion Gap 4 mmol/L (6-16); Blood Urea Nitrogen 12 mg/dL (8-24); Bun/Creatinine Ratio 13.9 (12.0-20.0); CO2, Blood 27 mmol/L (21-32); Chloride, Blood 106 mmol/L (98-108); Creatinine, Blood 0.86 mg/dL (0.40-1.00); Glomerular Filtration Rate >60 (60-); Glucose, Blood 253 mg/dL (70-99); Potassium, Blood 4.1 mmol/L (3.5-5.5); Sodium, Blood 137 mmol/L (136-145)
--- NOTE | 2020-09-20 14:47 | NUR ---
SPOKE TO [facility]KA MARTINEZ BY PHONE, GAVE UPDATE ON PATIENT CONDITION. SHE EXPRESSED CONCERN ABOUT PATIENT'S SORE THROAT, AND THE NEED FOR UROLOGY REFERRAL. GAVE DR. SIN THIS PERSON'S PHONE NUMBER, ASKED HIM TO CALL.
--- NOTE | 2020-09-20 18:12 | NUR ---
SHIFT SUMMARY: PATIENT INCREASINGLY ANXIOUS LATE THIS EVENING, THINKS SHE SHOULD BE FEELING BETTER THAN SHE DOES. HAS HAD SORE THROAT "FOR THE PAST TEN DAYS"; EXAM SHOWED POSSIBLE THRUSH, STARTED ON PO ANTIFUNGALS. NO EVENTS ON TELEMETRY, AFIB 90'S. GETTING UP TO BR WITH SBA; HAVING SMALL AMOUNTS OF HARD STOOL, BOWEL MEDS GIVEN PT COULD TOLERATE. CELLULITIS IS MUCH IMPROVED FROM YESTERDAY AND PT IS ABLE TO SIT IN CHAIR OR DANGLE FOR LONGER PERIODS OF TIME. WORKED WITH THERAPY TODAY.
--- NOTE | 2020-09-21 05:44 | NUR ---
SHIFT SUMMARY ADMITTED FOR UTI W/SEPSIS. FOUND TO HAVE CELLULITIS OF CHARY AREA. DNR CODE. PT ANXIOUS THROUGHOUT SHIFT. DID NOT SLEEP, BUT DID MOAN AND CALL OUT FREQUENTLY. MEDICATED FOR NAUSEA X2 THIS SHIFT (NO N/V OBSERVED). MEDICATED FOR PASTRANA W/TYLENOL. SMALL BM'S REPORTED. IV ANTIBIOTICS ARE SCHEDULED. TELEMETRY: AFIB @ 98 BPM. SHE DOES LIVE ALONE. SHE IS A&O X2 - 3, FORGETFUL AND ANXIOUS CONTINUOUSLY SO THAT IS CONCERNING. HX: BIPOLAR, ANXIETY
[2020-09-21 10:10] LABS: BASOPHILS ABSOLUTE AUTO 0.08 K/mm3 (0.00-0.23); BASOPHILS PERCENT AUTO 0 % (0-2); EOSINOPHILS ABSOLUTE AUTO 0.24 K/mm3 (0.00-0.68); EOSINOPHILS PERCENT AUTO 1 % (0-6); Hematocrit 39.8 % (33.0-51.0); Hemoglobin 12.2 g/dL (11.5-16.0); IMMATURE GRAN ABSOLUTE AUTO 0.32 K/mm3 (0.00-0.10); IMMATURE GRAN PERCENT AUTO 2 % (0-1); LYMPHOCYTES ABSOLUTE AUTO 1.37 K/mm3 (0.84-5.20); LYMPHOCYTES PERCENT AUTO 6 % (21-46); MONOCYTES ABSOLUTE AUTO 1.23 K/mm3 (0.16-1.47); MONOCYTES PERCENT AUTO 6 % (4-13); Mean Corpuscular HGB 29.5 pg (26.0-34.0); Mean Corpuscular HGB Conc 30.7 g/dL (31.5-36.5); Mean Corpuscular Volume 96 fL (80-100); Mean Platelet Volume 9.8 fL (9.1-12.4); NEUTROPHILS ABSOLUTE AUTO 18.79 K/mm3 (1.96-9.15); NEUTROPHILS PERCENT AUTO 85 % (41-73); NRBC ABSOLUTE 0.02 K/mm3 (0.00-0.02); NRBC Auto 0.1 /100 WBC (0.0-0.2); Platelet Count 253 K/mm3 (150-400); RDW Coefficient Variation 12.5 % (11.7-14.2); RDW Standard Deviation 43.8 fL (35.1-46.3); Red Blood Cell Count 4.14 M/mm3 (3.80-5.20); White Blood Cell Count 22.03 K/mm3 (4.00-11.30)
[2020-09-21 10:36] LABS: Lithium 0.86 mmol/L (0.60-1.20)
[2020-09-21 10:39] LABS: Anion Gap 8 mmol/L (6-16); Blood Urea Nitrogen 16 mg/dL (8-24); Bun/Creatinine Ratio 17.7 (12.0-20.0); CO2, Blood 22 mmol/L (21-32); Calcium, Blood 8.8 mg/dL (8.5-10.1); Chloride, Blood 102 mmol/L (98-108); Glomerular Filtration Rate >60 (60-); Glucose, Blood 287 mg/dL (70-99); Potassium, Blood 4.7 mmol/L (3.5-5.5); Sodium, Blood 132 mmol/L (136-145)
--- NOTE | 2020-09-21 13:19 | NUR ---
Patient immediately tells me that she is not feeling her best today even though the doctors and nurses indicate that she is better. Patient talks at length about her depression and anxiety and that she has been diagnosed as bipolar. Patient shares that this sadness has been a christiansen her whole life and that she would not have made it through without her aleksandra in God. We discuss her coping skills and resources. We discuss how her physical health can pull at her mental, emotional and spiritual health. I reinforce helpful attitudes and practices and provide therapeutic listening, pastoral career development counselor and prayer. Patient responds well and shows signs of improved nile and a brighter outlook. I will continue to remain available to patient and family.
--- NOTE | 2020-09-21 15:40 | NUR ---
SUMMARY PT IS A/O X4, CONTINUES WEAK/FATIGUED. SHE IS SOMEWHAT ANXIOUS @ X'S, REASSURANCE PROVIDED. SHE STATES JUST DOES NOT FEEL WELL, CONTINUING MALAISE. SHE IS UP 1 ASSIST w FWW, AMBULATE IN [place] TODAY w KARLEY. DX UTI, IV ANTIBX CONTINUE. SHE HAS CHARY AREA REDNESS/INDURATION THAT CONTINUES SORE/TENDER, DR STATE NO SURG/I&D @ THIS TIME. SHE CONTINUES AFIB/TELE, HR 80'S. BLE EDEMA 1-2+, DAIANA TITUS ON. PLAN FOR HER TO D/C TO SNF WHEN APPROP, IRENE COLD MOLDING PRESS OPERATOR DISCUSS w PT'S FAMILY TODAY.
--- NOTE | 2020-09-22 05:07 | NUR ---
SHIFT SUMMARY ADMITTED FOR UTI/SEPSIS. DNR CODE. PLAN IS FOR PLACEMENT TO SNF. SHE LIVES ALONE. I NOTE MARKED CONFUSION DURING EVENING SHIFTS. SHE DID FALL THIS SHIFT, NO APPARENT INJURY. CHARGE, HOSPITALIST, AND MANAGER EMERGENCY INFORMED. CELLULITIS IN CHARY AREA APPEARS TO BE IMPROVED. TELEMETRY: AFIB @ 90 BPM. BOWELS ARE LOOSE FOLLOWING EXTENSIVE BOWEL CARE SINCE ADMIT, I WILL INFORM AM NURSE OF THIS TO HALT BOWEL CARE.
--- NOTE | 2020-09-22 19:58 | NUR ---
SUMMARY PT HAS BEEN A/O X3-4 T/O SHIFT, HAS NOT DEMONSTRATED CONFUSION DURING DAYTIME. SHE HAS BEEN USING CALL SYSTEM FOR ASSIST TO GET UP S/P FALL LAST NOC. HAVE USED ALARMS FOR SAFETY T/O DAY. SHE CONTINUES TO STATE WEAKNESS/FATIGUE HOWEVER STATE FEELING SOMEWHAT IMPROVED. IV ANTIBX CONTINUE R/T UTI & CHARY AREA CELLULITIS. SHE WAS OUT FOR WALK IN [place] TODAY w KARLEY, 1 ASSIST w FWW. PLAN CONTINUES FOR HER TO TRANSFER TO SNF WHEN APPROP.
[2020-09-23 04:40] LABS: BASOPHILS ABSOLUTE AUTO 0.12 K/mm3 (0.00-0.23); BASOPHILS PERCENT AUTO 1 % (0-2); EOSINOPHILS ABSOLUTE AUTO 0.36 K/mm3 (0.00-0.68); EOSINOPHILS PERCENT AUTO 2 % (0-6); Hematocrit 40.4 % (33.0-51.0); Hemoglobin 12.4 g/dL (11.5-16.0); IMMATURE GRAN ABSOLUTE AUTO 0.61 K/mm3 (0.00-0.10); IMMATURE GRAN PERCENT AUTO 3 % (0-1); LYMPHOCYTES ABSOLUTE AUTO 2.17 K/mm3 (0.84-5.20); LYMPHOCYTES PERCENT AUTO 10 % (21-46); MONOCYTES ABSOLUTE AUTO 1.29 K/mm3 (0.16-1.47); MONOCYTES PERCENT AUTO 6 % (4-13); Mean Corpuscular HGB 29.5 pg (26.0-34.0); Mean Corpuscular HGB Conc 30.7 g/dL (31.5-36.5); Mean Corpuscular Volume 96 fL (80-100); Mean Platelet Volume 9.5 fL (9.1-12.4); NEUTROPHILS ABSOLUTE AUTO 18.23 K/mm3 (1.96-9.15); NEUTROPHILS PERCENT AUTO 80 % (41-73); Platelet Count 335 K/mm3 (150-400); RDW Coefficient Variation 12.6 % (11.7-14.2); RDW Standard Deviation 44.4 fL (35.1-46.3); Red Blood Cell Count 4.21 M/mm3 (3.80-5.20); White Blood Cell Count 22.78 K/mm3 (4.00-11.30)
--- NOTE | 2020-09-23 04:53 | NUR ---
SHIFT SUMMARY PT HAS BEEN ALERT, ORIENTED X3-4; FORGETFUL AT TIMES AND CONFUSED OCCASIONALLY, PRIMARILY UPON AWAKENING. REORIENTS EASILY. BED ALARM ON OVERNIGHT. PT HAS BEEN USING CALL LIGHT MOST OF THE TIME SHE NEEDS TO GET UP BUT HAS SET OFF BED ALARM SEVERAL TIMES ATTEMPTING TO GET UP TO USE BSC. HAS BEEN UP TO BSC MULTIPLE TIMES. TELE IN PLACE OVERNIGHT. PT HAS BEEN A-FIB WITH PVC'S PER STORE WORKER. PT REPORTED TO RN THIS MORNIGHT THAT SHE FELT HER BLOOD GLUCOSE WAS LOW; SPOT CHECK CBG CAME BACK AT 100. PT RESTING IN BED AT THIS TIME. CALL LIGHT IN REACH, BED ALARM ON.
[2020-09-23 05:01] LABS: Bun/Creatinine Ratio 22.4 (12.0-20.0); Calcium, Blood 8.8 mg/dL (8.5-10.1); Creatinine, Blood 0.98 mg/dL (0.40-1.00); Potassium, Blood 4.4 mmol/L (3.5-5.5)
[2020-09-23 10:17] LABS: Vancomycin, Trough 13.7 ug/mL (5.0-10.0)
--- NOTE | 2020-09-23 22:40 | NUR ---
PT C/O LEFT LABRUM DISCOMFORT; SITE RED, SWOLLEN AND HARD WITH SKIN PEELING AROUND EDGES; THIS NURSE WILL ADVISE MELITON OLIVARES AND ALSO ADVISED SHERON FOURNIER RN, CHARGE NURSE.
--- NOTE | 2020-09-24 03:50 | NUR ---
SHIFT SUMMARY: 80 Y/O OBESE FEMALE HAD RESTLESS NIGHT FIRST 10/01 SHIFT WITH PATIENT VERY ANXIOUS (ATARAX 10MG PO GIVEN WITH GOOD RESULTS NOTED WITH PT ABLE TO SLEEP) AND UTILIZING BSC WITHOUT CALLING FOR ASSISTANCE; PT TENDED TO JUMP OOB WITH GAIT SLOW AND VERY UNSTEADY VIA WALKER; PT VERY CONFUSED AT NIGHT AND DIFFICULT TO REORIENT; THIS NURSE ADVISED SHERON FOURNIER RN, CHARGE NURSE THAT PATIENT WOULD BENEFIT GETTING TRANSFERRED TO SPECIAL CARE UNIT DUE HIGH RISK FOR FALLS (PT WEARING YELLOW GOWN); PT VOIDING LARGE AMOUNTS URINE WITHOUT ISSUE; PTS LEFT LABRUM WAS NOTD TO BE VERY HARD, RED AND PAINFUL TO TOUCH WITH SURROUNDING SKIN PEELING AWAY ON EDGES OF REDDENED AREA--DAY SHIFT NURSE TO BE ADVISED THIS FINDING BY THIS NURSE (SHERON FOURNIER RN, CHARGE NURSE ALSO AWARE); BED ALARM APPLIED ALL SHIFT FOR SAFETY, BED LOW POSITION WITH CALL LIGHT AT SIDE.
[2020-09-24 05:00] LABS: BASOPHILS ABSOLUTE AUTO 0.11 K/mm3 (0.00-0.23); BASOPHILS PERCENT AUTO 1 % (0-2); EOSINOPHILS ABSOLUTE AUTO 0.38 K/mm3 (0.00-0.68); EOSINOPHILS PERCENT AUTO 2 % (0-6); Hematocrit 40.6 % (33.0-51.0); Hemoglobin 12.7 g/dL (11.5-16.0); IMMATURE GRAN PERCENT AUTO 3 % (0-1); LYMPHOCYTES ABSOLUTE AUTO 2.03 K/mm3 (0.84-5.20); LYMPHOCYTES PERCENT AUTO 8 % (21-46); MONOCYTES ABSOLUTE AUTO 1.35 K/mm3 (0.16-1.47); MONOCYTES PERCENT AUTO 6 % (4-13); Mean Corpuscular HGB 30.2 pg (26.0-34.0); Mean Corpuscular HGB Conc 31.3 g/dL (31.5-36.5); Mean Corpuscular Volume 97 fL (80-100); Mean Platelet Volume 9.4 fL (9.1-12.4); NEUTROPHILS ABSOLUTE AUTO 19.67 K/mm3 (1.96-9.15); NEUTROPHILS PERCENT AUTO 81 % (41-73); Platelet Count 369 K/mm3 (150-400); RDW Coefficient Variation 12.7 % (11.7-14.2); RDW Standard Deviation 45.6 fL (35.1-46.3); White Blood Cell Count 24.34 K/mm3 (4.00-11.30)
[2020-09-24 05:18] LABS: Bun/Creatinine Ratio 23.5 (12.0-20.0); Calcium, Blood 8.9 mg/dL (8.5-10.1); Creatinine, Blood 1.02 mg/dL (0.40-1.00); Potassium, Blood 4.5 mmol/L (3.5-5.5)
--- NOTE | 2020-09-24 19:57 | NUR ---
1950 PT TOOK ALL H.S. MEDS WITHOUT ISSUE; PT ALERT TO PERSON ONLY, VERY ANXIOUS AND REQUIRES FREQUENT REORIENTATION BY NURSING STAFF; BED ALARM APPLIED FOR STAFF.
--- NOTE | 2020-09-24 20:53 | NUR ---
PT TRANSFERRED TO ROOM 344 FROM 361 @ APPROX 2044. PT WAS MOVED BECAUSE OF HIGH FALL RISK AND SUNDOWNERS. PT IS CURRENTLY SLEEPING WITH BED ALARM ON AND CALL LIGHT WITHIN REACH. PT IS ALSO ON CAMERA. SHE IS ON 2 L/MIN 02 AND IN NO SIGN OF DISTRESS.
--- NOTE | 2020-09-25 04:02 | NUR ---
SHIFT SUMMARY PT MOVED TO SCU FROM ROOM 361 THIS EVENING DUE TO INCREASED RISK FOR FALLS AND OWNING. PT IS ON CAMERA, BED ALARM SET, YELLOW GOWN AND NONSKID SOCKS ON, CALL LIGHT WITHIN REACH AND BED IS IN LOWEST POSITION. PT SLEPT ON AND OFF T/O SHIFT. PT EXPERIENCED SOME ANXIETY AND FORGETFULNESS @ TIMES BUT WAS EASILY REDIRECTED. PT DOES NOT ALWAYS CALL APPROPRIATELY. PT IS A 1 ASSIST TO THE BS, EXPEIRENCED SOME SOB WITH AMBULATION. PT IS ON 2 L/MIN O2. HARD, RED MASS LOCATED ON THE LEFT LABIA AREA, LIDOCAINE WAS APPLIED PER PT REQUEST THIS EVENING. ALSO TREATED FOR PAIN X1 PER EMAR. PT STATED PAIN LOCATED IN HER HIPS. SHE IS CURRENTLY SLEEPING WITH BED IN LOWEST POSITION, CALL LIGHT WITHIN REACH, CAMERA ON, AND NONSKID SOCKS ON.
[2020-09-25 04:19] LABS: BASOPHILS ABSOLUTE AUTO 0.11 K/mm3 (0.00-0.23); BASOPHILS PERCENT AUTO 1 % (0-2); EOSINOPHILS ABSOLUTE AUTO 0.36 K/mm3 (0.00-0.68); EOSINOPHILS PERCENT AUTO 2 % (0-6); Hematocrit 37.8 % (33.0-51.0); Hemoglobin 11.6 g/dL (11.5-16.0); IMMATURE GRAN ABSOLUTE AUTO 0.75 K/mm3 (0.00-0.10); IMMATURE GRAN PERCENT AUTO 4 % (0-1); LYMPHOCYTES ABSOLUTE AUTO 1.73 K/mm3 (0.84-5.20); LYMPHOCYTES PERCENT AUTO 10 % (21-46); MONOCYTES ABSOLUTE AUTO 1.07 K/mm3 (0.16-1.47); MONOCYTES PERCENT AUTO 6 % (4-13); Mean Corpuscular HGB 29.6 pg (26.0-34.0); Mean Corpuscular HGB Conc 30.7 g/dL (31.5-36.5); Mean Corpuscular Volume 96 fL (80-100); Mean Platelet Volume 9.1 fL (9.1-12.4); NEUTROPHILS ABSOLUTE AUTO 13.68 K/mm3 (1.96-9.15); NEUTROPHILS PERCENT AUTO 77 % (41-73); Platelet Count 329 K/mm3 (150-400); RDW Coefficient Variation 12.7 % (11.7-14.2); RDW Standard Deviation 45.1 fL (35.1-46.3); Red Blood Cell Count 3.92 M/mm3 (3.80-5.20)
[2020-09-25 04:40] LABS: Bun/Creatinine Ratio 23.2 (12.0-20.0); Calcium, Blood 8.7 mg/dL (8.5-10.1); Creatinine, Blood 0.99 mg/dL (0.40-1.00); Potassium, Blood 4.5 mmol/L (3.5-5.5)
--- NOTE | 2020-09-25 17:16 | NUR ---
SHIFT SUMMARY: NO ACUTE CHANGES TO REPORT THIS SHIFT. PT ALERT; ORIENTED TO SELF; CALM AND COOPERATIVE WITH CARE. PT C/O PAIN IN PERIANAL AREA; MEDICATED PER EMAR. TELE IN PLACE; AFIB IN 70S PER PERSONNEL ASSOCIATE. O2 @ 2L.IV ABX CONTINUING. POSSIBLE D/C TO SNF 09/26, PER HOSPITALIST. MAY.
--- NOTE | 2020-09-26 02:14 | NUR ---
HS CBG NOT DRAWN THIS EVENING. DISCUSSED WITH CORONA MEHTA RN. CONFIRMED WITH CHARGE TO WAIT FOR LAB TO DRAW INSTEAD OF WAKING PT. NO ACTION TO BE TAKEN AT THIS TIME. PT HAS BEEN CONFUSED AND NOT RESTING WELL THIS EVENING R/T . SHE IS NOW CURRENTLY SLEEPING WITH NO S/SX OF HYPER/HYPOGLYCEMIA AND IS IN NO DISTRESS. PT RECIEVES NO COVERAGE @ NIGHT AND HER CBG HAVE NOT REACHED OVER 400 DURING HOSPITAL STAY.
--- NOTE | 2020-09-26 04:16 | NUR ---
SHIFT SUMMARY PT WAS A&Ox4 DURING ASSESSMENT, ANSWERED ALL ORIENTATION QUESTIONS CORRECTLY AND WAS MAKING CONVERSATION. THE NIGHT WENT ON PT WAS MORE CONFUSED TO WHY SHE WAS HERE AND THAT SHE WAS NOT AT A HOSPITAL. PT WAS EASILY REDIRECTED. PT HAS CALLED APPROPRIATELY TO USE BSC AND HAS SLEPT ON AND OFF T/O NIGHT. WAS TREATED FOR ANXIETY AND PAIN X1 PER EMAR. PT IS CURRENTLY SLEEPING WITH CALL LIGHT WITHIN REACH AND BED ALARM ON. PT APPEARS TO BE IN NO DISTRESS AT THIS TIME.
[2020-09-26 05:08] LABS: BASOPHILS ABSOLUTE AUTO 0.08 K/mm3 (0.00-0.23); BASOPHILS PERCENT AUTO 1 % (0-2); EOSINOPHILS PERCENT AUTO 3 % (0-6); Hematocrit 39.3 % (33.0-51.0); Hemoglobin 12.1 g/dL (11.5-16.0); IMMATURE GRAN PERCENT AUTO 4 % (0-1); LYMPHOCYTES PERCENT AUTO 10 % (21-46); MONOCYTES ABSOLUTE AUTO 0.95 K/mm3 (0.16-1.47); MONOCYTES PERCENT AUTO 6 % (4-13); Mean Corpuscular HGB 29.4 pg (26.0-34.0); Mean Corpuscular HGB Conc 30.8 g/dL (31.5-36.5); Mean Corpuscular Volume 96 fL (80-100); Mean Platelet Volume 9.3 fL (9.1-12.4); NEUTROPHILS ABSOLUTE AUTO 12.01 K/mm3 (1.96-9.15); NEUTROPHILS PERCENT AUTO 77 % (41-73); Platelet Count 293 K/mm3 (150-400); RDW Coefficient Variation 12.8 % (11.7-14.2); RDW Standard Deviation 44.9 fL (35.1-46.3); Red Blood Cell Count 4.11 M/mm3 (3.80-5.20); White Blood Cell Count 15.54 K/mm3 (4.00-11.30)
[2020-09-26 05:38] LABS: Anion Gap 5 mmol/L (6-16); Blood Urea Nitrogen 27 mg/dL (8-24); CO2, Blood 25 mmol/L (21-32); Calcium, Blood 8.5 mg/dL (8.5-10.1); Chloride, Blood 108 mmol/L (98-108); Creatinine, Blood 0.93 mg/dL (0.40-1.00); Glomerular Filtration Rate >60 (60-); Glucose, Blood 112 mg/dL (70-99); Potassium, Blood 4.7 mmol/L (3.5-5.5); Sodium, Blood 138 mmol/L (136-145)
[2020-09-26 10:25] LABS: Vancomycin, Trough 15.3 ug/mL (5.0-10.0)
--- NOTE | 2020-09-26 16:59 | NUR ---
SUMMARY PT HAS BEEN ORIENTED T/O DAY, MILD FORGETFULNESS. SHE IS FATIGUED, DROWSY, HAS NAPPED INTERMITTANTLY T/O DAY. NOC RN REPORT RESTLESS, POOR SLEEP, CONFUSION LAST NOC. SHE IS UP 1 ASSIST TO CHAIR FOR MEALS. SHE STATE CONTINUING "SACRUM" PAIN, TYLENOL GIVEN FOR RELIEF THIS AM. DR REA ASSESS L PERIAREA CELLULITIS, SITE CONTINUES RED/SWOLLEN/INDURATED/SORE. ORDER US WHICH DID NOT SHOW ABCESS. IV ANTIBX CONTINUE. SHE HAS BEEN AFEBRILE/VSS. [employer] JAVASCRIPT DEVELOPERBICYCLE RACER WILL CONTACT FAMILY FOR UPDATE TODAY. PLAN CONTINUES FOR SNF WHEN APPROP.
--- NOTE | 2020-09-26 19:37 | NUR ---
VERIFIED VIDEO MONITORING CALLED SCU ACTIVITY THERAPIST AND VERIFIED VIDEO MONITORING
--- NOTE | 2020-09-26 21:33 | NUR ---
PT AGITATED PT IS CALLING OUT FREQUENTLY. SHE IS CONFUSED AT TIMES. I WAS ABLE TO ADMINISTER 5 MG OF PRN ATARAX FOR ANXIETY, SHE REFUSED TO TAKE THE FULL DOSE.
--- NOTE | 2020-09-27 04:33 | NUR ---
SHIFT SUMMARY ADMITTED FOR UTI/SEPSIS. DNR CODE. FOUND TO HAVE CELLULITIS OF THE CHARY AREA. PT LIVES ALONE. FAMILY IS HOPEFUL FOR PLACEMENT TO SNF/REHAB. TELEMETRY: AFIB @ 74 BPM. SHE HAS A POWERGLIDE IV IN THE LEFT AC. IV ANTIBIOTICS ARE SCHEDULED. LIDOCAINE GEL IS AVAILABLE TO APPLY TO [place] AREA INFLAMMATION. ORAL SWISH AND SWALLOW IS SCHEDULED FOR ORAL THRUSH. HX: AFIB/ZOEY. I HAVE HAD THIS PT BEFORE AND I DID NOTE THIS PT GETS CONFUSED AT NIGHT PARTICULARLY, WHILE DURING THE DAY SHE APPEARS ORIENTED. THROUGHOUT THIS SHIFT SHE DID NOT SLEEP, SHE CALLED OUT FREQUENTLY. SHE WAS CONFUSED THROUGHOUT SHIFT.
[2020-09-27 05:04] LABS: BASOPHILS ABSOLUTE AUTO 0.12 K/mm3 (0.00-0.23); BASOPHILS PERCENT AUTO 1 % (0-2); EOSINOPHILS ABSOLUTE AUTO 0.31 K/mm3 (0.00-0.68); EOSINOPHILS PERCENT AUTO 2 % (0-6); Hematocrit 40.8 % (33.0-51.0); Hemoglobin 12.4 g/dL (11.5-16.0); IMMATURE GRAN ABSOLUTE AUTO 0.47 K/mm3 (0.00-0.10); IMMATURE GRAN PERCENT AUTO 3 % (0-1); LYMPHOCYTES PERCENT AUTO 11 % (21-46); MONOCYTES ABSOLUTE AUTO 1.07 K/mm3 (0.16-1.47); MONOCYTES PERCENT AUTO 6 % (4-13); Mean Corpuscular HGB Conc 30.4 g/dL (31.5-36.5); Mean Corpuscular Volume 96 fL (80-100); Mean Platelet Volume 9.3 fL (9.1-12.4); NEUTROPHILS ABSOLUTE AUTO 14.48 K/mm3 (1.96-9.15); NEUTROPHILS PERCENT AUTO 78 % (41-73); Platelet Count 368 K/mm3 (150-400); RDW Coefficient Variation 13.1 % (11.7-14.2); RDW Standard Deviation 45.8 fL (35.1-46.3); Red Blood Cell Count 4.27 M/mm3 (3.80-5.20); White Blood Cell Count 18.55 K/mm3 (4.00-11.30)
--- NOTE | 2020-09-27 05:17 | NUR ---
SHIFT SUMMARY ADDENDUM IT IS OF NOTE THAT THIS PT HAS A LOW GRADE FEVER OF 99.0 - 99.1 DEGREES. ALSO WBC COUNT HAS ELEVATED FROM 15.54, TO 18.55 THIS MORNING.
[2020-09-27 05:27] LABS: Albumin, Blood 2.6 g/dL (3.4-5.0); Albumin/Globulin Ratio 0.7 (0.8-1.8); Bilirubin, Total 0.4 mg/dL (0.1-1.0); Bun/Creatinine Ratio 26.2 (12.0-20.0); C-REACTIVE PROTEIN, EXT RANGE 1.25 mg/dL (0.000-0.300); Calcium, Blood 8.9 mg/dL (8.5-10.1); Creatinine, Blood 1.07 mg/dL (0.40-1.00); Globulin, Blood 3.9 g/dL (2.2-4.0); Magnesium, Blood 2.2 mg/dL (1.6-2.4); Phosphorus, Blood 3.3 mg/dL (2.5-4.9); Potassium, Blood 4.7 mmol/L (3.5-5.5); Total Protein, Blood 6.5 g/dL (6.4-8.2)
--- NOTE | 2020-09-27 16:19 | NUR ---
SUMMARY PT HAS BEEN A/O X3 T/O DAY, MILDLY FORGETFUL, SOMEWHAT FRETFUL @ X'S BUT DOES NOT DISPLAY CONFUSION THAT NOC RN HAS BEEN SEEING. SHE HAS USED CALL LIGHT GENERALLY FOR ASSIST, INFREQUENTLY HAS SETOFF BED ALARM W URINARY URGENCY, HOWEVER REDIRECTABLE. GROIN REDNESS, SWELLING/INDURATION CONTINUES TO IMPROVE, MINIMAL PAIN TODAY, SHE HAD TYLENOL THIS AM. IV ANTIBX CONTINUE. DR REA IN TO ASSESS, THEN CALLED FAMILY TO PROVIDE UPDATE, ANSWER QUESTIONS. PT HAS BEEN UP IN CHAIR FOR MEALS, SBA. SHE PARTICIPATE W [facility], AMBULATE IN [place] w FWW. VSS. PLAN FOR SNF WHEN APPROP.
--- NOTE | 2020-09-27 19:43 | NUR ---
CALLED VIDEO PLATING ENGINEER VERIFIED VIDEO MONITORING IS IN PLACE
--- NOTE | 2020-09-28 04:23 | NUR ---
SHIFT SUMMARY ADMITTED FOR UTI W/SEPSIS. FOUND TO HAVE CELLULITIS IN THE CHARY AREA. DNR CODE. PLAN IS FOR PLACEMENT TO SNF/REHAB. NO FEVER THIS SHIFT. PT DID SLEEP THROUGHOUT SHIFT. I DID NOTICE THIS PT USED HER CALL BUTTON APPROPRIATELY TO HAVE HER NEEDS MET THIS SHIFT. IV ANTIBIOTICS ARE SCHEDULED. NO NEW CONCERNS
--- NOTE | 2020-09-28 11:43 | NUR ---
Patient is sitting on a chair and resting her head on her rolling bed table. She easily awakens to the sound of her name. Patient tells me she is hoping to go to a rehab. center in [place] today but she states that she has not heard any news about it. Patient explains about her weakness and need for more strength training. Patient talks about how she misses her family. I provide therapeutic listening and prayer. Patient then prays a beautiful prayer as well. Patient verbalizes appreciation for the spiritual care visit. I will continue to provide spiritual support to patient.
--- NOTE | 2020-09-28 16:34 | NUR ---
PT IS A/OX3, PLEASANT AND COOPERATIVE, THE PT CAN GET ANXIOUS AT TIMES AND FEELS THAT SHE BECOMES SOB, PT IS COMFORTED WITH 1 L/MIN O2 VIA NC, THE PT IS UP WITH MINIMAL ASSIST TO THE CHAIR AND THE BSC, THE PT HAD 3 FORMED BM'S TODAY, THE PT WAS MEDICATED FOR NAUSEA X1 TODAY AND AFTERWARD FELT GOOD ENOUGH TO WALK WITH THE PHYSICAL THERAPIST, LIDOICAINE GEL WAS APPLIED TO THE PTS LEFT SWOLLEN LABIA/CHARY AREA THE PT REPORTED THAT THE SWEELING IN THAT AREA SEEMED TO BE GETTING BETTER, PT SON CALLED TO CHECK ON HER TODAY, AND THE PT HAD A VISITOR TODAY, CALL LIGHT IN REACH, WILL CONTINUE TO MONITOR FOR CHANGES
--- NOTE | 2020-09-28 18:12 | NUR ---
US PT WAS GIVEN DINNER THAT WAS TO BE HELD BEFORE THE US, THE US WAS POSTPONED UNTIL AM
--- NOTE | 2020-09-28 19:17 | NUR ---
VERIFIED VIDEO MONITORING VERIFIED VIDEO MONITORING FOR THIS PT
--- NOTE | 2020-09-29 02:58 | NUR ---
PT STATUS PT IS TOO WEAK TO STAND, GROWING PROGRESSIVELY WEAKER THROUGHOUT SHIFT. UNKNOWN ETIOLOGY (POSSIBLY PSYCHOSOMATIC?). HX: BIPOLAR DISORDER. THROUGHOUT THIS ENTIRE SHIFT SHE HAS BEEN EXCEPTIONALLY ANXIOUS AND CALLING OUT FREQUENTLY. HOWEVER, I AM UNWILLING TO RISK ANOTHER FALL WITH THIS PT SHE HAS A RECENT HX OF FALLS. SO UNFORTUNATELY I AM UTILIZING A BEDPAN FOR HER FOR THE REST OF THIS SHIFT, INSTEAD OF A BSC.
--- NOTE | 2020-09-29 04:57 | NUR ---
SHIFT SUMMARY ADMITTED FOR UTI W/SEPSIS. DNR CODE. PLAN IS FOR PLACEMENT. PT DID LIVE ALONE. PT HAS BLE EDEMA AND HX OF CHF. PT IS ALSO BIPOLAR AND SUNDOWNS. SHE SEEMED TO GET PROGRESSIVELY WEAKER THROUGHOUT SHIFT. WE ARE USING A BEDPAN NOW SHE IS HIGH RISK FOR FALLS. SEE PREVIOUS NOTE. SHE DID INFORM ME THAT SHE LIKES BEING HERE IN THE HOSPITAL SHE LIVES ALONE. SHE WAS ANXIOUS THIS SHIFT, CALLING OUT VERY FREQUENTLY. I DID ADMINISTER PRN MEDICATION FOR ANXIETY.
[2020-09-29 05:33] LABS: BASOPHILS ABSOLUTE AUTO 0.07 K/mm3 (0.00-0.23); BASOPHILS PERCENT AUTO 1 % (0-2); EOSINOPHILS ABSOLUTE AUTO 0.19 K/mm3 (0.00-0.68); EOSINOPHILS PERCENT AUTO 1 % (0-6); Hemoglobin 11.9 g/dL (11.5-16.0); IMMATURE GRAN ABSOLUTE AUTO 0.16 K/mm3 (0.00-0.10); IMMATURE GRAN PERCENT AUTO 1 % (0-1); LYMPHOCYTES ABSOLUTE AUTO 1.84 K/mm3 (0.84-5.20); LYMPHOCYTES PERCENT AUTO 13 % (21-46); MONOCYTES ABSOLUTE AUTO 1.01 K/mm3 (0.16-1.47); MONOCYTES PERCENT AUTO 7 % (4-13); Mean Corpuscular HGB 28.7 pg (26.0-34.0); Mean Corpuscular HGB Conc 29.8 g/dL (31.5-36.5); Mean Corpuscular Volume 96 fL (80-100); Mean Platelet Volume 9.5 fL (9.1-12.4); NEUTROPHILS PERCENT AUTO 78 % (41-73); Platelet Count 316 K/mm3 (150-400); RDW Standard Deviation 46.4 fL (35.1-46.3); Red Blood Cell Count 4.15 M/mm3 (3.80-5.20); White Blood Cell Count 14.67 K/mm3 (4.00-11.30)
[2020-09-29 06:02] LABS: Albumin, Blood 2.7 g/dL (3.4-5.0); Albumin/Globulin Ratio 0.7 (0.8-1.8); Bilirubin, Total 0.5 mg/dL (0.1-1.0); Calcium, Blood 8.9 mg/dL (8.5-10.1); Creatinine, Blood 1.21 mg/dL (0.40-1.00); Globulin, Blood 3.9 g/dL (2.2-4.0); Magnesium, Blood 2.2 mg/dL (1.6-2.4); Phosphorus, Blood 3.3 mg/dL (2.5-4.9); Potassium, Blood 4.5 mmol/L (3.5-5.5); Total Protein, Blood 6.6 g/dL (6.4-8.2)
[2020-09-29 13:27] LABS: Vancomycin, Trough 20.1 ug/mL (5.0-10.0)
--- NOTE | 2020-09-29 18:44 | NUR ---
SHIFT SUMMARY PT HAD ABD AND RENAL U/S DONE THIS SHIFT. L POWERGLIDE REMOVED DUE TO LEAKING, DR ALONSO CHANGED TO PO ABX AND OK FOR NO PIV. RA. GOOD APPETITE. CELLULITIS ON BOTTOM IS BETTER PER PT, LIDOCAINE APPLIED ONCE. SBA TO BR. DC TO SNF WITHIN NEXT FEW DAYS. TOOK MEDS PRESCRIBED. CALL LIGHT IN REACH, TM
[2020-09-30 04:29] LABS: BASOPHILS ABSOLUTE AUTO 0.06 K/mm3 (0.00-0.23); BASOPHILS PERCENT AUTO 0 % (0-2); EOSINOPHILS ABSOLUTE AUTO 0.17 K/mm3 (0.00-0.68); EOSINOPHILS PERCENT AUTO 1 % (0-6); Hematocrit 37.1 % (33.0-51.0); Hemoglobin 11.3 g/dL (11.5-16.0); IMMATURE GRAN ABSOLUTE AUTO 0.13 K/mm3 (0.00-0.10); IMMATURE GRAN PERCENT AUTO 1 % (0-1); LYMPHOCYTES PERCENT AUTO 13 % (21-46); MONOCYTES ABSOLUTE AUTO 0.89 K/mm3 (0.16-1.47); MONOCYTES PERCENT AUTO 7 % (4-13); Mean Corpuscular HGB 29.4 pg (26.0-34.0); Mean Corpuscular HGB Conc 30.5 g/dL (31.5-36.5); Mean Corpuscular Volume 96 fL (80-100); Mean Platelet Volume 9.3 fL (9.1-12.4); NEUTROPHILS ABSOLUTE AUTO 10.51 K/mm3 (1.96-9.15); NEUTROPHILS PERCENT AUTO 77 % (41-73); Platelet Count 278 K/mm3 (150-400); RDW Coefficient Variation 13.1 % (11.7-14.2); RDW Standard Deviation 45.9 fL (35.1-46.3); Red Blood Cell Count 3.85 M/mm3 (3.80-5.20); White Blood Cell Count 13.56 K/mm3 (4.00-11.30)
--- NOTE | 2020-09-30 04:45 | NUR ---
PET CARE ASSOCIATE SUMMARY NO ACUTE CHANGES THIS SHIFT. PT AAOX3 WITH SOME INTERMITTENT CONFUSION/FORGETFULNESS. BED ALARM ON FOR SAFETY PT IS IMPULSIVE AT TIMES AND DOES NOT ALWAYS USE CALL LIGHT FOR ASSISTANCE. MEDICATED FOR PAIN X1 WITH TYLENOL WITH GOOD RELIEF. 1 ASSIST TO BSC MULTIPLE TIMES THROUGH THE NIGHT. PT AWARE THAT PLAN GOING FORWARD IS FOR HER TO GO TO SNF FOR REHAB, PT AGREEABLE.
[2020-09-30 04:53] LABS: Alanine Aminotransfer (ALT/SGP 115 U/L (12-78); Albumin, Blood 2.5 g/dL (3.4-5.0); Albumin/Globulin Ratio 0.7 (0.8-1.8); Alk Phos 341 U/L (50-136); Anion Gap 4 mmol/L (6-16); Aspartate Aminotrans (AST/SGOT 70 U/L (12-37); Bilirubin, Total 0.5 mg/dL (0.1-1.0); Blood Urea Nitrogen 33 mg/dL (8-24); Bun/Creatinine Ratio 27.7 (12.0-20.0); CO2, Blood 30 mmol/L (21-32); Calcium, Blood 8.6 mg/dL (8.5-10.1); Chloride, Blood 105 mmol/L (98-108); Creatinine, Blood 1.19 mg/dL (0.40-1.00); Globulin, Blood 3.5 g/dL (2.2-4.0); Glomerular Filtration Rate 46 (60-); Glucose, Blood 94 mg/dL (70-99); Potassium, Blood 4.7 mmol/L (3.5-5.5); Sodium, Blood 139 mmol/L (136-145); Vancomycin, Random 16.4 ug/mL
--- NOTE | 2020-09-30 18:48 | NUR ---
SHIFT SUMMARY NEVA WAS DISAPPOINTED NOT TO GO HOME TODAY BUT WAS AMMENABLE TO STAYING HERE FOR THE WEEKEND AFTER DR RIBEIRO TALKED TO HER. SBA TO BR, HAD BM IN TOILET. GOOD APPETITE. TOOK MEDS PRESCRIBED. L GLUTEAL CELLULITIS CONTINUING TO IMPROVE. SPOKE TO SON ON THE PHONE, JEFFERY IS ON BOARD WITH PT STAYING WEEKEND CALL LIGHT IN REACH, GIVING REPORT TO NIGHT NURSE
--- NOTE | 2020-10-01 05:11 | NUR ---
CORPORATE SERVICES MANAGER SUMMARY NO ACUTE CHANGES THIS SHIFT. PT AAOX3 BUT WILL RARELY USE THE CALL LIGHT AND IS VERY IMPULSIVE. 1 ASSIST TO THE BSC. PT URINATES 200-300 ML AT A TIME SEVERAL TIMES THROUGH THE NIGHT. PT DOES STILL HAVE 2+ PITTING EDEMA IN BLE. PT HAS NOT SLEPT WELL THROUGH THE NIGHT. MEDICATED FOR CHRONIC PAIN X1 WITH TYLENOL AND X1 WITH TRAMADOL. VSS, WILL CONTINUE TO MONITOR.
[2020-10-01 08:08] LABS: HBSAG SCREEN Negative (Negative); HEP A AB, IGM Negative (Negative); HEP B CORE AB, IGM Negative (Negative); HEP C VIRUS AB 0.1 (0.0-0.9)
--- NOTE | 2020-10-01 18:41 | NUR ---
SHIFT SUMMARY NEVA WAS VERY ANXIOUS IN THE AFTERNOON, STATING "I FEEL TERRIBLE", SAYING THAT HER LEGS FELT SO PAINFULLY SWOLLEN. GAVE PO TRAMADOL AND TYLENOL WITH GOOD EFFECT. SBA TO BR, CALLED APPROPRIATELY MOST OF THE TIME. 95% ORIENTED. CALL LIGHT IN REACH, WCTM
[2020-10-02 05:15] LABS: BASOPHILS ABSOLUTE AUTO 0.08 K/mm3 (0.00-0.23); BASOPHILS PERCENT AUTO 1 % (0-2); EOSINOPHILS ABSOLUTE AUTO 0.25 K/mm3 (0.00-0.68); EOSINOPHILS PERCENT AUTO 3 % (0-6); Hematocrit 37.1 % (33.0-51.0); Hemoglobin 11.3 g/dL (11.5-16.0); IMMATURE GRAN ABSOLUTE AUTO 0.08 K/mm3 (0.00-0.10); IMMATURE GRAN PERCENT AUTO 1 % (0-1); LYMPHOCYTES PERCENT AUTO 19 % (21-46); MONOCYTES ABSOLUTE AUTO 0.81 K/mm3 (0.16-1.47); MONOCYTES PERCENT AUTO 8 % (4-13); Mean Corpuscular HGB 29.2 pg (26.0-34.0); Mean Corpuscular HGB Conc 30.5 g/dL (31.5-36.5); Mean Corpuscular Volume 96 fL (80-100); Mean Platelet Volume 9.6 fL (9.1-12.4); NEUTROPHILS ABSOLUTE AUTO 6.68 K/mm3 (1.96-9.15); NEUTROPHILS PERCENT AUTO 68 % (41-73); Platelet Count 305 K/mm3 (150-400); RDW Coefficient Variation 13.3 % (11.7-14.2); RDW Standard Deviation 46.9 fL (35.1-46.3); Red Blood Cell Count 3.87 M/mm3 (3.80-5.20)
--- NOTE | 2020-10-02 05:15 | NUR ---
SHIFT SUMMARY PT IS A/O. COOPERATIVE WITH CARE. ANXIOUS AT TIMES ABOUT BEING IN THE HOSPITAL AND SPEAKS AT TIMES ABOUT WANTING TO GO HOME. PT CONTINUES TO HAVE SOB WITH EXERTION. HAS DIFFICULTY LAYING FLAT. SPENT MOST OF THE NIGHT UP IN THE RECLINER CHAIR. O2 SATS IN THE HIGH 90'S ON RA. 900 MLS OF URINE OUT THIS EVENING. BLE'S WITH 2-3+ PITTING EDEMA. ENCOURAGED PT TO KEEP BLE'S ELEVATED. LUNG SOUNDS DIMINISHED WITH CRACKLES IN THE BASES. PT REPORTED PAIN TO BLE'S. MEDICATED PER EMAR. LEFT GLUTEAL CELLULITIS. VITAL SIGNS STABLE. PLAN FOR PT TO D/C TO SNF IN [place] TO BE CLOSE TO HER SON. PT UP RESTING IN HER CHAIR AT THIS TIME. WILL CONTINUE TO MONITOR.
[2020-10-02 05:51] LABS: Bun/Creatinine Ratio 28.5 (12.0-20.0); Calcium, Blood 8.7 mg/dL (8.5-10.1); Creatinine, Blood 1.44 mg/dL (0.40-1.00); Potassium, Blood 4.5 mmol/L (3.5-5.5)
--- NOTE | 2020-10-02 17:25 | NUR ---
SHIFT SUMMARY PATIENT ALERT AND ORIENTED THROUGHOUT THIS SHIFT. PATIENT UP TO THE BATHROOOM WITH FWW AND STANDBY ASSIST THIS SHIFT. PATIENT UP IN THE RECLINER MOST OF THIS SHIFT. PATIENT SLEEPING INTERMITENTLY THROUGHOUT THIS SHIFT IN THE RECLINER. PATIENT HAS BEEN CALM AND COOPERATIVE WITH CARE THIS SHIFT. PATIENT CURRENTLY SITTING UP IN BED AWAITING DINNER.
--- NOTE | 2020-10-03 05:03 | NUR ---
SHIFT SUMMARY PT REPORTED FEELING SLIGHTLY BETTER THIS EVENING THAN NIGHT BEFORE. CONTINUES TO HAVE SWELLING TO BLE'S 2-3+ AND COARSENESS TO LOWER LUNG LOBES. DENIED ANY SOB AND REMAINED ON RA THROUGHOUT THE NIGHT. HOWEVER, PT DID CONTINUE TO REPORT DIFFICULTY WITH BREATHING WHEN LYING IN THE BED AND REQUESTED TO BE UP IN THE CHAIR MUCH OF THE NIGHT. REPORTED PAIN TO BLE'S, MEDICATED X 1 W/ ULTRAM AND TYLENOL. OTHERWISE, PT HAD NO ACUTE CHANGES THIS SHIFT. VITAL SIGNS STABLE. WILL CONTINUE TO MONITOR AND REPORT TO DAY RN.
--- NOTE | 2020-10-03 14:45 | NUR ---
Patient immediately tells me about how upset she was because an RN at [facility] told the rehab. facility she was attempting to go to that she was combative. She was tearful as she talked about this and explained that she was rejected from going there because of this one RN's opinion and the patient had no way to even give her side of the story. Patient then talked about her prayers and her love for God and her desire to share that love wherever she goes. Patient takes about a possible rehab facility in [place], near her son who is battling cancer, that may be able to take her. Patient also shares about all the medical issues that have improved and a couple that the staff are still working on. I listen empathically and provide pastoral counselor dormitory and companionship. Patient responds well and shows signs of being encouraged in her aleksandra. I will continue to remain available to patient and family.
--- NOTE | 2020-10-03 17:03 | NUR ---
SHIFT SUMMARY PATIENT ALERT AND ORIENTED THROUGHOUT THIS SHIFT. PATIENT HAS REMAINED UP IN THE RECLINER THROUGHOUT THIS SHIFT. PATIENT ENCOURAGED TO ELEVATE FEET DUE TO EDEMA. PATIENT STATES SHE IS UNABLE TO DUE TO THE DISCOMFORT. PATIENT WORKED WITH PT/OT THIS SHIFT. PATIENT UP TO THE BATHROOM WITH STANDBY ASSIST. PATIENT UP TO THE BEDSIDE COMODE THIS AFTERNOON DUE TO URGENCY. PATIENT SLEEPS SITTING UPRIGHT OR SLOUCHED IN THE RECLINER. PATIENT CURRENTLY SITTING UPRIGHT IN THE CHAIR.
--- NOTE | 2020-10-03 18:16 | NUR ---
ADMIT:09/18/20 DISCHARGE: DX:UTI with sepsis CC: cpeabody ADMIT: 08/27/20 DISCHARGE:08/30/20 DX: SEPSIS, UTI CC: Page 2 of 2 BRADEN CALL: RESIDENCE: Home, Alone CAREGIVER: none Steven prescott - JEFFERY MORRIS, CHILD, [place] Jeffery Morris weekend telephone number [phone] DX: YEN, SVT, GERD, Bipolar, DM-type 2- DME: DM supplies, 4 wheel walker with seat. Does not use a cpap machine. CCM: none HOME HEALTH: [facility] current with nurse, PT, social work. SUMMARY: 10/03/20 PT OT changed discharge recommendations to Memory care/ Assisted Living/ wool sorter care. Spoke with Jeffery and Erin, they were very upset by this. They beleive the only way to convience Antonietta to move to Assisted Living is by going to SNF first. Graciela in care management possibly found snf ( [facility]) in [place] near to the Sons home. [facility] also have assisted living available. Graciela will look into going to Snf on a 5 day look back. If not accepted will have to discuss Memory or Assisted living with Antonietta. Requested kirstie randhawa to establish memory diagnosis if needed. Family believes she is still capable of making her own decsions. Will follow up with GRACIELA, kirstie randhawa and family on Saturday. Per Dr De Leon, excess fluid in low limbs needs to be reduced. ETA discharge . Family updated as to current status today. CP 09/29/20 Family was contacted by care management about possible snf in area they would like. Need to contact family again. Antonietta may be ready for discharge on Saturday per Dr Prado. Licha will not accpet her here.
--- NOTE | 2020-10-04 05:44 | NUR ---
SHIFT SUMMARY PATIENT ALERT AND ORIENTED FOR THE MOST PART WITH SOME BOUTS OF CONFUSION WHERE SHE FORGOT WHERE SHE WAS AND WHY SHE WAS AT THE HOSPITAL. PATIENT'S LEGS ARE VERY EDEMATOUS, HOWEVER SHE DOES NOT TOLERATE HAVING THEM ELEVATED IN THE RECLINER. PATIENT MEDICATED TWICE PER EMAR FOR LOWER LEG PAIN. PATIENT HAD GREAT DIFFICULTY GETTING TO SLEEP DUE TO HER CONFUSION AND AGITATION, SHE REFUSED PRN ANXIETY MEDICATION STATING THAT SHE DOES NOT LIKE HOW IT MAKES HER FEEL. IV PATENT AND FLUSHED. BED IN LOWEST POSITION WITH WHEELS LOCKED. PATIENT IN RECLINER WITH WHEELS LOCKED AND ALARM IN PLACE. CALL LIGHT WITHIN REACH. REPORT GIVEN TO ONCOMING RN.
[2020-10-04 08:59] LABS: Bun/Creatinine Ratio 32.8 (12.0-20.0); Calcium, Blood 8.8 mg/dL (8.5-10.1); Creatinine, Blood 1.34 mg/dL (0.40-1.00); Potassium, Blood 4.5 mmol/L (3.5-5.5)
--- NOTE | 2020-10-04 18:12 | NUR ---
10/04/19 This senior writer had a conversation with both Son Cj and ERIKA Pino, Graciela is still trying to reach [facility] for SNF, 5 day look back. PT OT recommendations still do not support SNF for Rehab, Memory care time study statistician or senior care care with supervision are the recommendations. Family will call [facility] to discuss assisted living if SNF not available. ERIKA Pino still very unhappy with PT OT recommendations. Hand off patient to Graciela [facility] skin care therapist for arranging snf or alf care placement. Per Elsa Director of skin care therapist meera. Odette was told of this hand off and she will contact Graciela. This senior writer will continue to follow progress of this discharge for physician. Dr De Leon does not support memory care for this patient in our conversation today. ETA discharge . CP
--- NOTE | 2020-10-04 18:20 | NUR ---
SHIFT SUMMARY PT IS A&OX3. DRUING LATE AFTERNOON PT HAS BEEN MORE CONFUSED ON WHERE SHE IS. PT IS ABLE TO TRANSFER TO BEDSIDE COMODE WITH LITTLE ASSISTANCE. PT REQUESTED APAP FOR LOWER LEG PAIN IN TOWARDS END OF SHIFT, OTHER THAN THAT PT HAS NOT COMPLAINED OF PAIN. PT HAS MAINLY BEEN IN CHAIR FOR THE SHIFT. PT STATES IT IS MORE COMFORTABLE TO NOT HAVE LEGS ELEVATED. PT CURENLTY IN ROOM EATTING DINNER. CALL LIGHT W/IN REACH.
--- NOTE | 2020-10-05 04:30 | NUR ---
SHIFT SUMMARY NO ACUTE EVENTS DURING THIS SHIFT. PT IS A&O X3, CAN BE FORGETFUL AT TIMES, CALLS APPROPRIATELY. MEDICATED X1 FOR PAIN, PT STATES THAT "IT'S HOW TIGHT THE SKIN ON MY LOWER LEGS IS THAT HURTS THE MOST." OTHERWISE NO OTHER COMPLAINTS FOR THIS RN. PT IS LAYING IN BED WITH EYES CLOSED, EVEN AND UNLABORED RESPIRATIONS. BED IN LOWERED POSITION WITH ALARM IN PLACE. CALL LIGHT AND PERSONAL ITEMS WITH IN REACH. NO APPARENT NEEDS OR DISTRESS AT THIS TIME, WILL CONTINUE TO MONITOR UNTIL REPORT GIVEN TO DAY RN.
--- NOTE | 2020-10-05 16:55 | NUR ---
10/05/19 Per Luiz in care management, received acceptance to [facility] snf rehab Saturday. Covid test approved by Dr De Leon, acceptable within 72 hours of admitt. Need EARLY AM discharge on SATURDAY, Luiz will schedule transportation. Probable move to assisted living in same facility once rehab is complete.
--- NOTE | 2020-10-05 18:10 | NUR ---
SHIFT SUMMARY PT IS A&OX3. PT 1 PERSON SBA TO BEDSIDE COMODE. PT COMPLAINED OF ITCHING IN PERITONEAL AREA, DR. SIN ORDER ANTIFUNGAL POWDER FOR PT. PT ONLY COMPLAINT OF PAIN DURING SHIFT HAPPENED LATER IN DAY. PT MEDICATED PER EMAR. PLAN IS FOR PT TO DC TO [facility] ON SATURDAY. PT COMPLAINE THE IV IS TENDER WHEN FLUSHING, PT DOES NOT WANT NEW IV PLACED. NO REDNESS OR SWELLING NOTED AT IV SITE. PT CURENLTY IN ROOM IN CHAIR EATING DINNER. CALL LIGHT W/IN REACH.
--- NOTE | 2020-10-06 04:35 | NUR ---
SHIFT SUMMARY NO ACUTE CHANGES THIS SHIFT, MEDICATED 1X FOR LEG PAIN, PT SLEPT T/O THE NIGHT IN RECLINER, STATES "HAS NOT SLEPT IN A BED IN YEARS", PLEASANT, COOPERATIVE W/CARE, SLEEPING AT THIS TIME, CALL LIGHT IN REACH, CHAIR ALARM ACTIVE, WILL CONT TO MONITOR UNTIL REPORT GIVEN TO DAY RN.
[2020-10-06 13:11] LABS: Influenza A, PCR Negative (NEGATIVE); Influenza B, PCR Negative (NEGATIVE); Resp Syncytial Virus, PCR Negative (NEGATIVE); SARS-Cov-2 (COVID-19) PCR, MMC Negative (NEGATIVE)
--- NOTE | 2020-10-06 15:45 | NUR ---
Patient immediately tells me that she will DC next day. She tells me her fears and worries about it and states that she is only moving to [place] to be near her son. She is motivated by her sons delight to have her closer to him. She talks about her psych eval and how she had to assure the doctor that she is does not want to do harm to herself or others. She states that this destructive thinking is no where near what or who she is. She shares that she will miss the staff at the hospital and our conversations. I provide therapeutic listening, anxiety containment and prayer. Patient responds well and shows signs of reduced stress.
--- NOTE | 2020-10-06 16:19 | NUR ---
SHIFT SUMMARY- PT IS A/O, PLESANT AND COOPERATIVE. SHE IS EATING AND DRINKING WELL. SHE IS USING THE BSC. COVID TEST DONE TODAY FOR POSSIBLE DISCHARGE TOMORROW TO SNF IN [place].
[2020-10-06 17:29] LABS: BASOPHILS ABSOLUTE AUTO 0.09 K/mm3 (0.00-0.23); BASOPHILS PERCENT AUTO 1 % (0-2); EOSINOPHILS ABSOLUTE AUTO 0.24 K/mm3 (0.00-0.68); EOSINOPHILS PERCENT AUTO 2 % (0-6); Hemoglobin 12.7 g/dL (11.5-16.0); IMMATURE GRAN ABSOLUTE AUTO 0.05 K/mm3 (0.00-0.10); IMMATURE GRAN PERCENT AUTO 0 % (0-1); LYMPHOCYTES ABSOLUTE AUTO 1.62 K/mm3 (0.84-5.20); LYMPHOCYTES PERCENT AUTO 13 % (21-46); MONOCYTES ABSOLUTE AUTO 1.06 K/mm3 (0.16-1.47); MONOCYTES PERCENT AUTO 9 % (4-13); Mean Corpuscular HGB 29.6 pg (26.0-34.0); Mean Corpuscular Volume 96 fL (80-100); Mean Platelet Volume 9.8 fL (9.1-12.4); NEUTROPHILS ABSOLUTE AUTO 9.43 K/mm3 (1.96-9.15); NEUTROPHILS PERCENT AUTO 76 % (41-73); Platelet Count 360 K/mm3 (150-400); RDW Coefficient Variation 13.4 % (11.7-14.2); RDW Standard Deviation 47.6 fL (35.1-46.3); Red Blood Cell Count 4.29 M/mm3 (3.80-5.20); White Blood Cell Count 12.49 K/mm3 (4.00-11.30)
--- NOTE | 2020-10-06 18:01 | NUR ---
10/06/20 DR SIN ORDERING ULTRASOUND FOR LOWER LEGS. IF NO OCCLUSIONS, DISCHARGE TO [facility] SATURDAY AM. TRANSPORT SCHEDULED FOR 10 AM NEED TO SEND NEVA TRANSITION OF CARE LETTER STATING IRENE WILL FOLLOW HER CARE FOR THE NEXT 30 DAYS WHILE SHE IS GETTING ESTABLISHED WITH A NEW PCP IN [facility].
[2020-10-07 05:14] LABS: Albumin, Blood 3.2 g/dL (3.4-5.0); Albumin/Globulin Ratio 0.8 (0.8-1.8); Bilirubin, Total 0.5 mg/dL (0.1-1.0); Bun/Creatinine Ratio 36.6 (12.0-20.0); Creatinine, Blood 1.42 mg/dL (0.40-1.00); Globulin, Blood 3.8 g/dL (2.2-4.0); Potassium, Blood 4.1 mmol/L (3.5-5.5)
--- NOTE | 2020-10-07 05:15 | NUR ---
SHIFT SUMMARY NO ACUTE CHANGES OVERNIGHT, MEDICATED 1X FOR PAIN, NO OTHER C/O ANY KIND, SLEEPING IN BED AT THIS TIME, CALL LIGHT IN REACH, WILL CONT TO MONITOR UNTIL REPORT GIVEN TO DAY RN.
--- NOTE | 2020-10-07 07:48 | NUR ---
ASSUMED CARE OF PT- BEDSIDE REPORT COMPLETED WITH NIGHT RN. PER REPORT PT HAD VL DUPLEX COMPLETED YESTERDAY ORDER IS STILL ACTIVE AND NO READING IS AVAILABLE. CALLED [employer] DECEMBER; PRELIMINARY READ FROM THE TECH THAT DID THE STUDY STATED THE PT HAS A DISTAL FEMORAL VEIN DVT. CALLED DR PEREZ AND SPOKE WITH HIM ABOUT THE PRELIMINARY RESULTS. WAITING FOR THE OFFICIAL READING TO BEGIN TREATMENT. WILL WATCH FOR THE OFFICIAL READING OF THE STUDY.
--- NOTE | 2020-10-07 08:13 | NUR ---
CALLED US TECH DECEMBER AND ASKED FOR THE READING ON THE VL DUPLEX RACHEAL THE PT IS SCHEDULED TO DC IN 2 HOURS. SHE WILL SPEAK TO THE DR AND GET THE READING DONE FIRST WHEN HE ARRIVES.
[2020-10-07] MEDS ORDERED: CITA20 PO (09:29)
[2020-10-07] MEDS ORDERED: DOCU100 PO (09:30)
[2020-10-07] MEDS ORDERED: Seroquel Xr50 MG PO (09:31)
[2020-10-07] MEDS ORDERED: FURO40 PO (09:31)
[2020-10-07] MEDS ORDERED: MIRALAX17 GM PO (09:32)
[2020-10-07] MEDS ORDERED: METO25 PO (09:33)
[2020-10-07] MEDS ORDERED: XYLOCAINE UD (09:43)
[2020-10-07] MEDS ORDERED: QUETIAPINE FUMA50 M2 PO (10:06)
[2020-10-07] MEDS ORDERED: VISBIOME (10:15)
--- NOTE | 2020-10-07 11:01 | NUR ---
10/07/20- PT IS SET TO D/C TODAY TO [facility]. ULTRASOUND WAS COMPLETED AND DVT FOUND IN LEFT FEMORAL. NURSE CALLED TO HAVE AMANDEEP LISTED ON D/C MED LIST NEEDED DUE TO BLOOD CLOT. INFORMED DR. SIN WHO REPORTED THAT MEDICATION WAS ON PT HOME RECS. PT SCHEDULED TO TRANSFER BEFORE NOON. -BONNIE
--- NOTE | 2020-10-07 11:27 | NUR ---
DISCHARGE NOTE- PT DISCHARGED TO SNF.CALLED TELEPHONE REPORT TO FACILITY SPOKE TO SELINA. FACILITY IS LOCTED IN [place] SPOKE TO ABOUT HOLDING IV LASIX PRIOR TOLONG CAR RIDE, AGREED AND STATED THE PT COULD WAIT AND TAKE IT UPON ARRIVAL TO THE FACILITY PASSED THIS ON IN REPORT TO RECIEVING RN. PT C/O PAIN AT THE ALEXI OF DISCHARGE AND WAS MEDICATED WITH TYLENOL PRIOR TO LEAVING. PT WAS TAKEN TO SNF IN [place] VIA WC TRANSPORT. IV DC'D PRIOR TO DISCHARGE.
== END 2020-10-07 10:35 | DRG 871 ==
LOC: ER 02:44 → MEDS 04:48
PROVIDERS: Emergency Medicine; Family Medicine; Hospitalist; Internal Medicine; Pharmacist; ADMIT Internal Medicine
DX: A41.9 Sepsis, unspecified organism (principal); N17.0 Acute kidney failure with tubular necrosis; I50.33 Acute on chronic diastolic (congestive) heart failure; F31.81 Bipolar II disorder; I13.0 Hypertensive heart and chronic kidney disease with heart failure and stage 1 through stage 4 chronic kidney disease, or unspecified chronic kidney disease; B37.0 Candidal stomatitis; L03.317 Cellulitis of buttock; I82.412 Acute embolism and thrombosis of left femoral vein; Z66 Do not resuscitate; Z20.822 Contact with and (suspected) exposure to COVID-19; F41.9 Anxiety disorder, unspecified; I48.91 Unspecified atrial fibrillation; N18.9 Chronic kidney disease, unspecified; E11.22 Type 2 diabetes mellitus with diabetic chronic kidney disease; E11.65 Type 2 diabetes mellitus with hyperglycemia; E86.0 Dehydration; Z91.81 History of falling; G47.33 Obstructive sleep apnea (adult) (pediatric); Z87.891 Personal history of nicotine dependence; I27.29 Other secondary pulmonary hypertension; I34.0 Nonrheumatic mitral (valve) insufficiency; K21.9 Gastro-esophageal reflux disease without esophagitis; I36.1 Nonrheumatic tricuspid (valve) insufficiency
CPT/HCPCS: 0241U; 36415; 71045; 72193; 74176; 76700; 76857; 80048; 80053; 80074; 80178; 80202; 81001; 82947; 83605; 83690; 83735; 83880; 84100; 84145; 84484; 85025; 85651; 86140; 86141; 87040; 87077; 87086; 87186; 93005; 93010; 93308; 93321; 93970; 96365; 97110; 97110-CQ; 97116; 97116-CQ; 97129; 97162; 97165; 97530; 97535; 99283; 99285-25; A9270; A9270-GY; C1751; J0696; J1650; J1815; J1940; J2405; J3370; J7030; J7042; J7050; Q0163; Q9967

== ENCOUNTER 2020-12-11 18:05 | Emergency (ER) | payer MEDICARE, OTHER ==
[~2020-12-11] VITALS: Ht 162.6 cm; Wt 72.6 kg
[~2020-12-11 18:05] MED LIST changes: +BASAGLAR K100 UNIT/1 SC; +CITA20 PO; +DOCU100 PO; +ELIQUIS5 MG PO; +FURO40 PO; +METO25 PO; +MIRALAX17 GM PO; +QUETIAPINE FUMA50 M2 PO; +Seroquel Xr50 MG PO; +VISBIOME; +XYLOCAINE UD
[2020-12-11 20:12] LABS: BASOPHILS ABSOLUTE AUTO 0.03 K/mm3 (0.00-0.23); BASOPHILS PERCENT AUTO 0 % (0-2); EOSINOPHILS ABSOLUTE AUTO 0.12 K/mm3 (0.00-0.68); EOSINOPHILS PERCENT AUTO 1 % (0-6); Hematocrit 40.9 % (33.0-51.0); Hemoglobin 13.3 g/dL (11.5-16.0); IMMATURE GRAN ABSOLUTE AUTO 0.02 K/mm3 (0.00-0.10); IMMATURE GRAN PERCENT AUTO 0 % (0-1); LYMPHOCYTES ABSOLUTE AUTO 2.27 K/mm3 (0.84-5.20); LYMPHOCYTES PERCENT AUTO 24 % (21-46); MONOCYTES ABSOLUTE AUTO 0.81 K/mm3 (0.16-1.47); MONOCYTES PERCENT AUTO 8 % (4-13); Mean Corpuscular HGB 29.7 pg (26.0-34.0); Mean Corpuscular HGB Conc 32.5 g/dL (31.5-36.5); Mean Corpuscular Volume 91 fL (80-100); Mean Platelet Volume 10.5 fL (9.1-12.4); NEUTROPHILS PERCENT AUTO 66 % (41-73); Platelet Count 251 K/mm3 (150-400); RDW Coefficient Variation 13.5 % (11.7-14.2); RDW Standard Deviation 45.9 fL (35.1-46.3); Red Blood Cell Count 4.48 M/mm3 (3.80-5.20); White Blood Cell Count 9.65 K/mm3 (4.00-11.30)
[2020-12-11 20:31] LABS: Alanine Aminotransfer (ALT/SGP 33 U/L (12-78); Albumin, Blood 3.6 g/dL (3.4-5.0); Albumin/Globulin Ratio 0.9 (0.8-1.8); Alk Phos 153 U/L (50-136); Anion Gap 6 mmol/L (6-16); Aspartate Aminotrans (AST/SGOT 29 U/L (12-37); Bilirubin, Total 0.3 mg/dL (0.1-1.0); Blood Urea Nitrogen 49 mg/dL (8-24); Bun/Creatinine Ratio 44.5 (12.0-20.0); CO2, Blood 32 mmol/L (21-32); Calcium, Blood 9.4 mg/dL (8.5-10.1); Chloride, Blood 99 mmol/L (98-108); Globulin, Blood 4.1 g/dL (2.2-4.0); Glomerular Filtration Rate 51 (60-); Glucose, Blood 234 mg/dL (70-99); Potassium, Blood 4.2 mmol/L (3.5-5.5); Sodium, Blood 137 mmol/L (136-145); Total Protein, Blood 7.7 g/dL (6.4-8.2); Troponin I <0.015 ng/mL (0.000-0.040)
[2020-12-11] MEDS ORDERED: ACET325 PO (21:34)
[2020-12-11] MEDS ORDERED: BENMENLOZ ×2 (21:36→21:43)
[2020-12-11] MEDS ORDERED: BISA10S ×2 (21:38→21:44)
[2020-12-11] MEDS ORDERED: TORSE20 (21:44)
[2020-12-11] MEDS ORDERED: CEPH500 (21:44)
[2020-12-11] MEDS ORDERED: SENNA LAXATIVE8.6 MG PO (21:44)
[2020-12-11] MEDS ORDERED: MIRALAX17 GM (21:44)
[2020-12-11] MEDS ORDERED: TRIDERM28.4 GM (21:45)
== END 2020-12-11 23:33 | disposition home or self-care (01) ==
LOC: ER 18:05
PROVIDERS: Emergency Medicine
DX: R60.0 Localized edema (principal); E11.9 Type 2 diabetes mellitus without complications; I10 Essential (primary) hypertension; E03.9 Hypothyroidism, unspecified; F31.9 Bipolar disorder, unspecified; Z88.0 Allergy status to penicillin; Z88.1 Allergy status to other antibiotic agents; Z88.8 Allergy status to other drugs, medicaments and biological substances; Z79.4 Long term (current) use of insulin; Z79.899 Other long term (current) drug therapy
CPT/HCPCS: 36415; 71045; 80053; 82947; 83880; 84484; 85025; 93005; 93010; 99284-25; A9270

== ENCOUNTER 2020-12-15 20:17 | Observation (INO) | payer MEDICARE, OTHER ==
[~2020-12-15] VITALS: Ht 162.6 cm; Wt 74.1 kg
[~2020-12-15 20:17] MED LIST changes: +ACET325 PO; +BENMENLOZ; +BISA10S; +CEPH500; +MIRALAX17 GM; +SENNA LAXATIVE8.6 MG PO; +TORSE20; +TRIDERM28.4 GM
[2020-12-15] MEDS ORDERED: POTA10T PO (20:50)
[2020-12-15] MEDS ORDERED: LEVFLO500 PO (20:51)
[2020-12-15] MEDS ORDERED: NOVOLOG100 UNIT/2 ×2 (20:52→20:53)
[2020-12-15] MEDS ORDERED: BUME2 PO (20:53)
[2020-12-15] MEDS ORDERED: ELIQUIS5 MG PO (20:53)
[2020-12-15] MEDS ORDERED: METO2.5 PO (20:54)
[2020-12-15 21:52] LABS: BASOPHILS ABSOLUTE AUTO 0.03 K/mm3 (0.00-0.23); BASOPHILS PERCENT AUTO 0 % (0-2); EOSINOPHILS PERCENT AUTO 1 % (0-6); Hematocrit 41.1 % (33.0-51.0); Hemoglobin 13.7 g/dL (11.5-16.0); IMMATURE GRAN ABSOLUTE AUTO 0.03 K/mm3 (0.00-0.10); IMMATURE GRAN PERCENT AUTO 0 % (0-1); LYMPHOCYTES ABSOLUTE AUTO 2.71 K/mm3 (0.84-5.20); LYMPHOCYTES PERCENT AUTO 25 % (21-46); MONOCYTES ABSOLUTE AUTO 0.76 K/mm3 (0.16-1.47); MONOCYTES PERCENT AUTO 7 % (4-13); Mean Corpuscular HGB Conc 33.3 g/dL (31.5-36.5); Mean Corpuscular Volume 90 fL (80-100); Mean Platelet Volume 10.4 fL (9.1-12.4); NEUTROPHILS ABSOLUTE AUTO 7.04 K/mm3 (1.96-9.15); NEUTROPHILS PERCENT AUTO 66 % (41-73); Platelet Count 234 K/mm3 (150-400); RDW Coefficient Variation 13.2 % (11.7-14.2); RDW Standard Deviation 43.7 fL (35.1-46.3); Red Blood Cell Count 4.57 M/mm3 (3.80-5.20); White Blood Cell Count 10.67 K/mm3 (4.00-11.30)
[2020-12-15 22:13] LABS: Alanine Aminotransfer (ALT/SGP 28 U/L (12-78); Albumin, Blood 3.6 g/dL (3.4-5.0); Albumin/Globulin Ratio 0.9 (0.8-1.8); Alk Phos 112 U/L (50-136); Anion Gap 7 mmol/L (6-16); Aspartate Aminotrans (AST/SGOT 21 U/L (12-37); Bilirubin, Total 0.4 mg/dL (0.1-1.0); Blood Urea Nitrogen 48 mg/dL (8-24); Bun/Creatinine Ratio 34.8 (12.0-20.0); CO2, Blood 35 mmol/L (21-32); Calcium, Blood 9.8 mg/dL (8.5-10.1); Chloride, Blood 92 mmol/L (98-108); Creatinine, Blood 1.38 mg/dL (0.40-1.00); Globulin, Blood 3.9 g/dL (2.2-4.0); Glomerular Filtration Rate 39 (60-); Glucose, Blood 159 mg/dL (70-99); Magnesium, Blood 1.9 mg/dL (1.6-2.4); Potassium, Blood 3.3 mmol/L (3.5-5.5); Sodium, Blood 134 mmol/L (136-145); Total Protein, Blood 7.5 g/dL (6.4-8.2); Troponin I <0.015 ng/mL (0.000-0.040)
[2020-12-15 22:57] LABS: Source, Urine Catheter
[2020-12-15 23:00] LABS: Bilirubin, Urine Neg (Neg); Blood, Urine 4+ (Neg); Glucose Qualitative, Urine Neg (Neg); Ketones, Urine Neg (Neg); Leukocyte Esterase, Urine 2+ (Neg); Nitrite, Urine Neg (Neg); Protein, Urine 3+ (Neg); Urobilinogen, Urine NORM (Normal)
[2020-12-15 23:09] LABS: Appearance, Urine Hazy (Clear); Color, Urine Yellow (P-Yellow)
[2020-12-15 23:10] LABS: Bacteria Mod /hpf; Mucus Light (0-Heavy); Transitional Epithelial Cells Few /hpf (0-Rare)
[2020-12-15 23:13] LABS: Amorphous Heavy (0-Heavy); Squamous Epithelial Cells Few /hpf (Few); White Blood Cells, Urine 50-100 /hpf (0-5)
[2020-12-16] MEDS ORDERED: CEFP200 PO (00:04)
--- NOTE | 2020-12-16 05:10 | NUR ---
SHIFT SUMMARY- PT. NEW ADMIT FROM ED, ARRIVED VIA WHEELCHAIR. A&OX4, 1 ASSIST TO BSC. PT. NOTED ANXIOUS UPON ARRIVAL. MEDICATED WITH ORDERED ATIVAN PER EMAR. ALSO C/O NA WELL, ZOFRAN GIVEN PER EMAR WITH GOOD EFFECT. PT. ASLEEP THE REST OF THE MORNING, NO APPARENT DISTRESS NOTED. IV FLUIDS INFUSING, VSS. CALL LIGHT WITHIN REACH, SIDE RAILS UPX2, AND BED ALARM ON FOR SAFETY. WILL CONT TO MONITOR.
[2020-12-16 08:43] LABS: BASOPHILS ABSOLUTE AUTO 0.04 K/mm3 (0.00-0.23); BASOPHILS PERCENT AUTO 0 % (0-2); EOSINOPHILS ABSOLUTE AUTO 0.12 K/mm3 (0.00-0.68); EOSINOPHILS PERCENT AUTO 1 % (0-6); Hematocrit 38.2 % (33.0-51.0); Hemoglobin 12.8 g/dL (11.5-16.0); IMMATURE GRAN ABSOLUTE AUTO 0.03 K/mm3 (0.00-0.10); IMMATURE GRAN PERCENT AUTO 0 % (0-1); LYMPHOCYTES ABSOLUTE AUTO 2.45 K/mm3 (0.84-5.20); LYMPHOCYTES PERCENT AUTO 27 % (21-46); MONOCYTES PERCENT AUTO 10 % (4-13); Mean Corpuscular HGB 29.8 pg (26.0-34.0); Mean Corpuscular HGB Conc 33.5 g/dL (31.5-36.5); Mean Corpuscular Volume 89 fL (80-100); Mean Platelet Volume 10.4 fL (9.1-12.4); NEUTROPHILS PERCENT AUTO 61 % (41-73); Platelet Count 195 K/mm3 (150-400); RDW Coefficient Variation 13.2 % (11.7-14.2); RDW Standard Deviation 42.8 fL (35.1-46.3); White Blood Cell Count 9.14 K/mm3 (4.00-11.30)
[2020-12-16 08:54] LABS: Albumin, Blood 3.2 g/dL (3.4-5.0); Albumin/Globulin Ratio 0.9 (0.8-1.8); Bilirubin, Total 0.5 mg/dL (0.1-1.0); Bun/Creatinine Ratio 35.7 (12.0-20.0); Calcium, Blood 9.1 mg/dL (8.5-10.1); Creatinine, Blood 1.26 mg/dL (0.40-1.00); Globulin, Blood 3.5 g/dL (2.2-4.0); Potassium, Blood 3.4 mmol/L (3.5-5.5); Total Protein, Blood 6.7 g/dL (6.4-8.2); Troponin I 0.017 ng/mL (0.000-0.040)
--- NOTE | 2020-12-16 11:28 | NUR ---
Patient is sitting on the EOB and alert. Patient immediately tells me about the medical issues she has. Patient then goes into a long list of things that she would like me to pray for. The list was so long that I had to take notes. I get 3/4 of [address] way through the prayer list and patient falls asleep. I will continue to remain available to patient and family.
[2020-12-16] MEDS ORDERED: HYDPAM25 PO (16:21)
[2020-12-16] MEDS ORDERED: MIRALAX17 G3 PO (16:23)
--- NOTE | 2020-12-16 17:16 | NUR ---
BLOOD SUGAR [address] MORRISON RE ABOVE BLOOD GLUCOSE. ORDER TO TREAT PER EMAR.
[2020-12-16 17:18] LABS: CPK Creatine Kinase 67 U/L (26-193); Troponin I <0.015 ng/mL (0.000-0.040)
--- NOTE | 2020-12-16 17:20 | NUR ---
ADMIT: 12/15/20 DISCHARGE: 12/16/20 DX: chest pain CC: cpeabody ADMIT:09/18/20 DISCHARGE: 10/07/20 DX:UTI with sepsis CC: cpeabody; kwilcox ADMIT: 08/27/20 DISCHARGE:08/30/20 DX: SEPSIS, UTI CC: Page 1 BRADEN CALL: Met with Antonietta, lives at [place], call Nurse at [place] for braden. Appt 12/20/20 10/07/19 Discharging to [facility] for SNF and then move to Assisted living at [facility]. RESIDENCE: 12/16/20 [place] 10/07/19 [facility] CAREGIVER: may have private caregivers, unable to identify names. Hippa contact - JEFFERY MORRIS, CHILD, [place] Daughter in Law - Jessica Jeffery Morris telephone number [phone] DX: YEN, SVT, GERD, Bipolar, DM-type 2- anxiety DME: DM supplies, 4 wheel walker with seat. Does not use a cpap machine. CCM: none HOME HEALTH: [facility] current with nurse, PT, social work. resumed hh 12/16/20 SUMMARY: Admit 12/15/20 12/16/20 met with Antonietta prior to discharge back to [place], very high anxiety, requesting Medications for anxiety. Dr Larkin ordered short term and pcp will need to evaluate. Came in for constipation. BM and discharge home, has a ride, did not identify any additional care needs. Has braden appt on December 20 with Puma. ASSESSMENT: 1. The patient is an 80-year-old female, comes in tonight with mainly gastrointestinal symptoms initially with nausea, abdominal pain, and constipation. Clinically, she does not appear obstructed. 2. She complained of some chest pain and is found to have an abnormal EKG, more so than her prior once. 3. Constipation.
--- NOTE | 2020-12-16 17:35 | NUR ---
Discharge Summary A/Ox4. Pleasant and cooperative with care. Discharging back to [place]. Report called to receiving nurse Maria R. All paperwork faxed to [place] including med recs and discharge paperwork, faxed by Charge Thelma. Medicated for nausea x 2, PASTRANA x 1, both with good effect. Medicated per T.O. from Dr. Larkin for blood glucose of 378, snacks provided. Friend transported patient back to [place] via personal vehicle. All personal belongings sent home. Patient had 3 bowel movements today, all formed/pasty and of good size. Appetite is good, calls appropriately for needs. Patient is pretty anxious and also seems to have flight of ideas.
== END 2020-12-16 17:48 | disposition home or self-care (01) ==
LOC: ER 20:17 → MEDS 20:18
PROVIDERS: Emergency Medicine; ADMIT Internal Medicine
DX: K59.01 Slow transit constipation (principal); R07.9 Chest pain, unspecified; R94.31 Abnormal electrocardiogram [ECG] [EKG]; E11.65 Type 2 diabetes mellitus with hyperglycemia; E11.22 Type 2 diabetes mellitus with diabetic chronic kidney disease; N18.31 Chronic kidney disease, stage 3a; E87.6 Hypokalemia; N39.0 Urinary tract infection, site not specified; F41.9 Anxiety disorder, unspecified; F31.9 Bipolar disorder, unspecified; I27.20 Pulmonary hypertension, unspecified; Z79.4 Long term (current) use of insulin; Z85.42 Personal history of malignant neoplasm of other parts of uterus; Z79.01 Long term (current) use of anticoagulants
CPT/HCPCS: 36415; 71045; 80053; 81001; 82550; 82947; 83605; 83735; 83880; 84484; 85025; 87040; 87086; 93005; 93010; 96365; 96375; 96376; 99285-25; A9270; G0378; J0696; J2405; J7030

== ENCOUNTER 2020-12-18 00:33 | Emergency (ER) | payer MEDICARE, OTHER ==
[~2020-12-18] VITALS: Ht 162.6 cm; Wt 74.8 kg
[~2020-12-18 00:33] MED LIST changes: +BUME2 PO; +CEFP200 PO; +HYDPAM25 PO; +METO2.5 PO; +MIRALAX17 G3 PO; +NOVOLOG100 UNIT/2; +POTA10T PO
[2020-12-18 00:45] LABS: BASOPHILS ABSOLUTE AUTO 0.04 K/mm3 (0.00-0.23); BASOPHILS PERCENT AUTO 0 % (0-2); EOSINOPHILS ABSOLUTE AUTO 0.15 K/mm3 (0.00-0.68); EOSINOPHILS PERCENT AUTO 1 % (0-6); Hematocrit 37.9 % (33.0-51.0); Hemoglobin 12.4 g/dL (11.5-16.0); IMMATURE GRAN ABSOLUTE AUTO 0.02 K/mm3 (0.00-0.10); IMMATURE GRAN PERCENT AUTO 0 % (0-1); LYMPHOCYTES ABSOLUTE AUTO 2.74 K/mm3 (0.84-5.20); LYMPHOCYTES PERCENT AUTO 25 % (21-46); MONOCYTES ABSOLUTE AUTO 0.85 K/mm3 (0.16-1.47); MONOCYTES PERCENT AUTO 8 % (4-13); Mean Corpuscular HGB 29.9 pg (26.0-34.0); Mean Corpuscular HGB Conc 32.7 g/dL (31.5-36.5); Mean Corpuscular Volume 91 fL (80-100); Mean Platelet Volume 10.3 fL (9.1-12.4); NEUTROPHILS ABSOLUTE AUTO 7.15 K/mm3 (1.96-9.15); NEUTROPHILS PERCENT AUTO 65 % (41-73); Platelet Count 210 K/mm3 (150-400); RDW Coefficient Variation 13.2 % (11.7-14.2); RDW Standard Deviation 44.7 fL (35.1-46.3); Red Blood Cell Count 4.15 M/mm3 (3.80-5.20); White Blood Cell Count 10.95 K/mm3 (4.00-11.30)
[2020-12-18] MEDS ORDERED: DOCU100 PO (00:46)
[2020-12-18] MEDS ORDERED: ONDA4 PO (00:52)
[2020-12-18 01:05] LABS: Bun/Creatinine Ratio 34.7 (12.0-20.0); Calcium, Blood 8.9 mg/dL (8.5-10.1); Creatinine, Blood 1.47 mg/dL (0.40-1.00); Potassium, Blood 3.5 mmol/L (3.5-5.5); Troponin I 0.019 ng/mL (0.000-0.040)
== END 2020-12-18 02:40 | disposition home or self-care (01) ==
LOC: ER 00:33
PROVIDERS: Emergency Medicine
DX: R07.9 Chest pain, unspecified (principal); R10.9 Unspecified abdominal pain; E11.9 Type 2 diabetes mellitus without complications; I11.0 Hypertensive heart disease with heart failure; I50.9 Heart failure, unspecified; E03.9 Hypothyroidism, unspecified; Z79.899 Other long term (current) drug therapy; Z88.0 Allergy status to penicillin; Z88.1 Allergy status to other antibiotic agents; Z88.8 Allergy status to other drugs, medicaments and biological substances; Z79.01 Long term (current) use of anticoagulants; Z79.4 Long term (current) use of insulin
CPT/HCPCS: 71045; 80048; 84484; 85025; 93005; 93010; 99284-25; A9270

== ENCOUNTER 2020-12-19 14:23 | Day surgery (SDC) | payer MEDICARE, OTHER ==
[~2020-12-19 14:23] MED LIST changes: +ONDA4 PO
== END 2020-12-19 22:59 | disposition home or self-care (01) ==
LOC: WOUND 14:23
DX: L97.819 Non-pressure chronic ulcer of other part of right lower leg with unspecified severity (principal); I87.2 Venous insufficiency (chronic) (peripheral); I73.9 Peripheral vascular disease, unspecified; E11.22 Type 2 diabetes mellitus with diabetic chronic kidney disease; N18.31 Chronic kidney disease, stage 3a; E11.21 Type 2 diabetes mellitus with diabetic nephropathy; Z79.4 Long term (current) use of insulin; E87.70 Fluid overload, unspecified; Z88.4 Allergy status to anesthetic agent; Z88.1 Allergy status to other antibiotic agents; Z88.0 Allergy status to penicillin; Z88.8 Allergy status to other drugs, medicaments and biological substances
CPT/HCPCS: G0463

== ENCOUNTER 2020-12-23 20:17 | Observation (INO) | payer MEDICARE, OTHER ==
[~2020-12-23] VITALS: Ht 162.6 cm; Wt 73.2 kg
[2020-12-23 21:19] LABS: BASOPHILS ABSOLUTE AUTO 0.04 K/mm3 (0.00-0.23); BASOPHILS PERCENT AUTO 0 % (0-2); EOSINOPHILS ABSOLUTE AUTO 0.15 K/mm3 (0.00-0.68); EOSINOPHILS PERCENT AUTO 2 % (0-6); Hematocrit 38.6 % (33.0-51.0); Hemoglobin 12.7 g/dL (11.5-16.0); IMMATURE GRAN ABSOLUTE AUTO 0.02 K/mm3 (0.00-0.10); IMMATURE GRAN PERCENT AUTO 0 % (0-1); LYMPHOCYTES ABSOLUTE AUTO 2.21 K/mm3 (0.84-5.20); LYMPHOCYTES PERCENT AUTO 25 % (21-46); MONOCYTES ABSOLUTE AUTO 0.73 K/mm3 (0.16-1.47); MONOCYTES PERCENT AUTO 8 % (4-13); Mean Corpuscular HGB 29.8 pg (26.0-34.0); Mean Corpuscular HGB Conc 32.9 g/dL (31.5-36.5); Mean Corpuscular Volume 91 fL (80-100); Mean Platelet Volume 10.1 fL (9.1-12.4); NEUTROPHILS ABSOLUTE AUTO 5.86 K/mm3 (1.96-9.15); NEUTROPHILS PERCENT AUTO 65 % (41-73); Platelet Count 239 K/mm3 (150-400); RDW Coefficient Variation 13.3 % (11.7-14.2); RDW Standard Deviation 43.8 fL (35.1-46.3); Red Blood Cell Count 4.26 M/mm3 (3.80-5.20); White Blood Cell Count 9.01 K/mm3 (4.00-11.30)
[2020-12-23 21:39] LABS: Albumin, Blood 3.5 g/dL (3.4-5.0); Albumin/Globulin Ratio 0.9 (0.8-1.8); Bilirubin, Total 0.2 mg/dL (0.1-1.0); Bun/Creatinine Ratio 36.4 (12.0-20.0); Calcium, Blood 9.2 mg/dL (8.5-10.1); Creatinine, Blood 1.87 mg/dL (0.40-1.00); Globulin, Blood 4.1 g/dL (2.2-4.0); Potassium, Blood 3.4 mmol/L (3.5-5.5); Total Protein, Blood 7.6 g/dL (6.4-8.2); Troponin I 0.019 ng/mL (0.000-0.040)
[2020-12-23] MEDS ORDERED: FURO20 (23:05)
[2020-12-23] MEDS ORDERED: Atarax10 MG (23:09)
[2020-12-23] MEDS ORDERED: NOVOLOG FL100 UNIT/3 SC (23:10)
[2020-12-24] MEDS ORDERED: FURO80 PO (02:24)
[2020-12-24 05:17] LABS: BASOPHILS ABSOLUTE AUTO 0.04 K/mm3 (0.00-0.23); BASOPHILS PERCENT AUTO 0 % (0-2); EOSINOPHILS PERCENT AUTO 2 % (0-6); Hematocrit 37.2 % (33.0-51.0); Hemoglobin 12.2 g/dL (11.5-16.0); IMMATURE GRAN ABSOLUTE AUTO 0.05 K/mm3 (0.00-0.10); IMMATURE GRAN PERCENT AUTO 1 % (0-1); LYMPHOCYTES ABSOLUTE AUTO 2.39 K/mm3 (0.84-5.20); LYMPHOCYTES PERCENT AUTO 26 % (21-46); MONOCYTES ABSOLUTE AUTO 0.85 K/mm3 (0.16-1.47); MONOCYTES PERCENT AUTO 9 % (4-13); Mean Corpuscular HGB 29.5 pg (26.0-34.0); Mean Corpuscular HGB Conc 32.8 g/dL (31.5-36.5); Mean Corpuscular Volume 90 fL (80-100); NEUTROPHILS ABSOLUTE AUTO 5.84 K/mm3 (1.96-9.15); NEUTROPHILS PERCENT AUTO 62 % (41-73); Platelet Count 209 K/mm3 (150-400); RDW Coefficient Variation 13.4 % (11.7-14.2); RDW Standard Deviation 44.1 fL (35.1-46.3); Red Blood Cell Count 4.14 M/mm3 (3.80-5.20); White Blood Cell Count 9.37 K/mm3 (4.00-11.30)
[2020-12-24 05:56] LABS: Bun/Creatinine Ratio 39.9 (12.0-20.0); Calcium, Blood 9.4 mg/dL (8.5-10.1); Creatinine, Blood 1.63 mg/dL (0.40-1.00); Potassium, Blood 2.9 mmol/L (3.5-5.5)
--- NOTE | 2020-12-24 06:09 | NUR ---
SHIFT SUMMARY- PT. NEW ADMIT FROM ED ARRIVED VIA STRETCHER. A&OX4, BLE SWELLING AND SORES. PT. GIVEN BUMEX IN THE ED, DIURESING WELL ON THE MEDICAL UNIT. CALLS APPROPRIATELY, USES BSC W/1 ASSIST. PT. C/O PASTRANA LAST NIGHT, MEDICATED PER EMAR WITH GOOD EFFECT. ON RA, DENIES SOB OR ANY OTHER DISCOMFORT. PT. APPEARED TO HAVE RESTED COMFORTABLY DURING THE NIGHT, NO APPAARENT DISTRESS NOTED. VSS. CALL LIGHT WITIN REACH AND SIDE RAILS UPX2. WILL CONT TO MONITOR.
--- NOTE | 2020-12-24 17:21 | NUR ---
SHIFT SUMMARY- PT IS A/O, PLESANT AND COOPERATIVE. SHE IS EATING AND DRINKING WELL. SHE WORKED WITH PT TODAY AND TOLERATED WELL. SHE WILL BEGIN A 24 HOUR URINE STUDY. HER BED IS IN THE LOW POSITION AND CALL LIGHT IS SUZI NULL.
[2020-12-25 05:03] LABS: Hematocrit 40.3 % (33.0-51.0); Hemoglobin 13.4 g/dL (11.5-16.0)
--- NOTE | 2020-12-25 05:03 | NUR ---
SHIFT SUMMARY- PT. A&OX4, PLEASANT AND COOPERATIVE WITH CARE. SLEPT ON/OFF DURING THE NIGHT. APPEARED VERY ANXIOUS IN THE EVENING ALSO CONCERNED WITH BEING CONSTIPATED. MEDICATED PT. FOR ANXIETY AND WITH PRN MIRALAX PER EMAR WITH MINIMAL EFFECT. HAD SMALL BM. ALSO C/O SEVERE HEART BURN, NOTIFIED HOSPITALIST. RECEIVED ORDER FOR 1X DOSE OF MAALOX. ADMINISTERED PER EMAR AND PRUNE JUICE GIVEN WELL PER PT. REQUEST. PT REPORTED GOOD RELIEF AND ABLE TO HAVE MULTIPLE MEDIUM SIZE BM'S. REPOSITIONED AND ELEVATED LEGS FOR COMFORT/PRN. PT. APPEARS TO BE RESTING COMFORTABLY IN BED, NO APPARENT DISTRESS NOTED. CALL LIGHT WITHIN REACH AND SIDE RAILS UPX2. WILL CONT TO MONITOR.
[2020-12-25 05:27] LABS: Albumin, Blood 3.3 g/dL (3.4-5.0); Anion Gap 7 mmol/L (6-16); Blood Urea Nitrogen 62 mg/dL (8-24); Bun/Creatinine Ratio 45.6 (12.0-20.0); CO2, Blood 35 mmol/L (21-32); Calcium, Blood 9.7 mg/dL (8.5-10.1); Chloride, Blood 92 mmol/L (98-108); Creatinine, Blood 1.36 mg/dL (0.40-1.00); Glomerular Filtration Rate 40 (60-); Glucose, Blood 243 mg/dL (70-99); Magnesium, Blood 2.3 mg/dL (1.6-2.4); Phosphorus, Blood 4.4 mg/dL (2.5-4.9); Potassium, Blood 3.4 mmol/L (3.5-5.5); Sodium, Blood 134 mmol/L (136-145)
[2020-12-25] MEDS ORDERED: FURO80 PO (14:46)
[2020-12-25] MEDS ORDERED: CEFD300 PO (14:54)
[2020-12-25] MEDS ORDERED: SPIR25 PO (15:07)
--- NOTE | 2020-12-25 15:34 | NUR ---
DISCHARGE SUMMARY WENT DOWN TO RIDE BY W/C. STICKER AT FRONT FOR CM TO MAKE F/U WITH DARREN PT AWARE WE WILL CALL HER WITH AN APPOINTMENT FOR ROHINI AND DARREN. PIV REMOVED, PAPERWORK GONE OVER. MEDS FAXED TO FACILITY, ATTEMPTED TO CALL REPORT, BUT THEY ARE BUSY AND THEY EVIDENTALLY WILL CALL ME BACK.
[2020-12-25 15:49] LABS: Protein, Urine Quantitative 5.6 mg/dL (0.0-11.9)
== END 2020-12-25 15:29 | disposition home or self-care (01) ==
LOC: ER 20:17 → MEDS 20:18 → ER 12-24 01:48 → MEDS 12-24 02:09
PROVIDERS: Internal Medicine Nephrology; Physician Assistant; ADMIT Family Medicine
DX: N17.9 Acute kidney failure, unspecified (principal); I13.0 Hypertensive heart and chronic kidney disease with heart failure and stage 1 through stage 4 chronic kidney disease, or unspecified chronic kidney disease; I50.33 Acute on chronic diastolic (congestive) heart failure; N18.30 Chronic kidney disease, stage 3 unspecified; E11.22 Type 2 diabetes mellitus with diabetic chronic kidney disease; L03.116 Cellulitis of left lower limb; L03.115 Cellulitis of right lower limb; E87.6 Hypokalemia; I48.20 Chronic atrial fibrillation, unspecified; F31.9 Bipolar disorder, unspecified; E03.9 Hypothyroidism, unspecified; Z79.01 Long term (current) use of anticoagulants; Z79.899 Other long term (current) drug therapy
CPT/HCPCS: 36415; 71046; 76770; 80048; 80053; 80069; 81050; 82947; 83735; 83880; 84156; 84484; 85014; 85018; 85025; 93005; 93010; 96365; 96374; 96375; 96376; 97110; 97116; 97161; 99285-25; A9270; G0378; J0690; J1815; J1940; J2405; J3480; Q0177

== ENCOUNTER → 2021-01-17 | Outpatient (CLI) | payer MEDICARE, OTHER ==
[~2021-01-17] MED LIST changes: +Atarax10 MG; +FURO20; +FURO80 PO; +NOVOLOG FL100 UNIT/3 SC; +SPIR25 PO
[2021-01-17 17:26] LABS: BASOPHILS ABSOLUTE AUTO 0.03 K/mm3 (0.00-0.23); BASOPHILS PERCENT AUTO 0 % (0-2); EOSINOPHILS ABSOLUTE AUTO 0.11 K/mm3 (0.00-0.68); EOSINOPHILS PERCENT AUTO 1 % (0-6); Hematocrit 45.5 % (33.0-51.0); Hemoglobin 14.9 g/dL (11.5-16.0); IMMATURE GRAN ABSOLUTE AUTO 0.02 K/mm3 (0.00-0.10); IMMATURE GRAN PERCENT AUTO 0 % (0-1); LYMPHOCYTES ABSOLUTE AUTO 2.51 K/mm3 (0.84-5.20); LYMPHOCYTES PERCENT AUTO 25 % (21-46); MONOCYTES ABSOLUTE AUTO 0.69 K/mm3 (0.16-1.47); MONOCYTES PERCENT AUTO 7 % (4-13); Mean Corpuscular HGB 29.6 pg (26.0-34.0); Mean Corpuscular HGB Conc 32.7 g/dL (31.5-36.5); Mean Corpuscular Volume 90 fL (80-100); NEUTROPHILS PERCENT AUTO 66 % (41-73); Platelet Count 258 K/mm3 (150-400); RDW Coefficient Variation 12.6 % (11.7-14.2); RDW Standard Deviation 41.1 fL (35.1-46.3); Red Blood Cell Count 5.04 M/mm3 (3.80-5.20); White Blood Cell Count 9.96 K/mm3 (4.00-11.30)
[2021-01-17 17:47] LABS: Albumin, Blood 4.3 g/dL (3.4-5.0); Bilirubin, Total 0.4 mg/dL (0.1-1.0); Bun/Creatinine Ratio 25.7 (12.0-20.0); Calcium, Blood 9.8 mg/dL (8.5-10.1); Creatinine, Blood 2.57 mg/dL (0.40-1.00); Globulin, Blood 4.1 g/dL (2.2-4.0); Potassium, Blood 4.4 mmol/L (3.5-5.5); Total Protein, Blood 8.4 g/dL (6.4-8.2)
== END | disposition home or self-care (01) ==
LOC: LAB EV 17:14 → LAB SHORT 17:14
PROVIDERS: Physician Assistant
DX: R07.9 Chest pain, unspecified (principal); R10.9 Unspecified abdominal pain
CPT/HCPCS: 80053; 83690; 84484; 85025

== ENCOUNTER → 2021-02-03 | Outpatient (CLI) | payer MEDICARE, OTHER | END | disposition home or self-care (01) | LOC: LAB 15:30 → LAB SHORT 15:30 | DX: R82.81 Pyuria (principal) | CPT/HCPCS: 87077; 87086; 87186 ==

== ENCOUNTER → 2021-02-17 | Outpatient (CLI) | payer MEDICARE, OTHER ==
[2021-02-17 13:07] LABS: Source, Urine Clean Catch
[2021-02-17 13:34] LABS: Appearance, Urine Clear (Clear); Bilirubin, Urine Neg (Neg); Blood, Urine Neg (Neg); Color, Urine Yellow (P-Yellow); Glucose Qualitative, Urine Neg (Neg); Ketones, Urine Neg (Neg); Leukocyte Esterase, Urine 1+ (Neg); Nitrite, Urine Neg (Neg); Protein, Urine Neg (Neg); Urobilinogen, Urine NORM (Normal)
[2021-02-17 14:07] LABS: Squamous Epithelial Cells Few /hpf (Few)
[2021-02-17 14:08] LABS: Bacteria Rare /hpf; Red Blood Cells, Urine 0-2 /hpf (0-2); Uric Acid Crystals Few /hpf
== END | disposition home or self-care (01) ==
LOC: LAB SHORT 10:30 → LAB 10:30
PROVIDERS: Family Medicine
DX: N39.0 Urinary tract infection, site not specified (principal); R30.9 Painful micturition, unspecified
CPT/HCPCS: 81001

== ENCOUNTER → 2021-07-28 | Outpatient (CLI) | payer MEDICARE, OTHER ==
[2021-07-29 07:24] LABS: Candida species (DNA Probe) Negative (NEGATIVE); G. vaginalis (DNA Probe) Negative (NEGATIVE); T. vaginalis (DNA Probe) Negative (NEGATIVE)
== END ==
LOC: LAB 16:13 → LAB SHORT 16:13
PROVIDERS: Family Medicine
DX: N76.0 Acute vaginitis (principal); Z88.1 Allergy status to other antibiotic agents; Z88.8 Allergy status to other drugs, medicaments and biological substances
CPT/HCPCS: 87480; 87510; 87660

== ENCOUNTER → 2022-06-05 | Outpatient (CLI) | payer MEDICARE ==
[~2022-06-05] MED LIST changes: +ESCITALOPRAM OXA5 MG PO; +FAMO20 PO; +INSULANPEN SC
== END | disposition home or self-care (01) ==
LOC: LAB 14:15 → LAB SHORT 14:15
DX: L08.0 Pyoderma (principal)
CPT/HCPCS: 87070; 87077; 87147; 87186; 87205

== ENCOUNTER → 2022-06-12 | Outpatient (CLI) | payer MEDICARE ==
[2022-06-12 17:53] LABS: Albumin, Blood 3.4 g/dL (3.4-5.0); Anion Gap 6 mmol/L (6-16); Blood Urea Nitrogen 34 mg/dL (8-24); Bun/Creatinine Ratio 28.3 (12.0-20.0); CO2, Blood 29 mmol/L (21-32); Chloride, Blood 102 mmol/L (98-108); Glomerular Filtration Rate 45 (60-); Glucose, Blood 310 mg/dL (70-99); Phosphorus, Blood 3.4 mg/dL (2.5-4.9); Potassium, Blood 5.3 mmol/L (3.5-5.5); Sodium, Blood 137 mmol/L (136-145)
== END | disposition home or self-care (01) ==
LOC: LAB SHORT 13:25
PROVIDERS: Internal Medicine Nephrology
DX: N18.30 Chronic kidney disease, stage 3 unspecified (principal); D63.1 Anemia in chronic kidney disease
CPT/HCPCS: 80069

== ENCOUNTER 2023-09-03 10:13 | Emergency (ER) | payer MEDICARE ==
[~2023-09-03] VITALS: Ht 162.6 cm; Wt 65.8 kg
[2023-09-03] MEDS ORDERED: METOPROLOL TART5010 PO (11:16)
[2023-09-03] MEDS ORDERED: ELIQUIS2.5 M1 PO (11:16)
[2023-09-03 11:38] LABS: BASOPHILS ABSOLUTE AUTO 0.02 K/mm3 (0.00-0.23); BASOPHILS PERCENT AUTO 0 % (0-2); EOSINOPHILS ABSOLUTE AUTO 0.05 K/mm3 (0.00-0.68); EOSINOPHILS PERCENT AUTO 1 % (0-6); Hematocrit 40.5 % (33.0-51.0); Hemoglobin 12.9 g/dL (11.5-16.0); IMMATURE GRAN ABSOLUTE AUTO 0.02 K/mm3 (0.00-0.10); IMMATURE GRAN PERCENT AUTO 0 % (0-1); LYMPHOCYTES ABSOLUTE AUTO 1.05 K/mm3 (0.84-5.20); LYMPHOCYTES PERCENT AUTO 15 % (21-46); MONOCYTES PERCENT AUTO 10 % (4-13); Mean Corpuscular HGB 30.1 pg (26.0-34.0); Mean Corpuscular HGB Conc 31.9 g/dL (31.5-36.5); Mean Corpuscular Volume 95 fL (80-100); Mean Platelet Volume 10.4 fL (9.1-12.4); NEUTROPHILS ABSOLUTE AUTO 5.13 K/mm3 (1.96-9.15); NEUTROPHILS PERCENT AUTO 74 % (41-73); Platelet Count 191 K/mm3 (150-400); RDW Coefficient Variation 14.8 % (11.7-14.2); RDW Standard Deviation 51.1 fL (35.1-46.3); Red Blood Cell Count 4.28 M/mm3 (3.80-5.20); White Blood Cell Count 6.97 K/mm3 (4.00-11.30)
[2023-09-03 11:52] LABS: Albumin, Blood 3.6 g/dL (3.4-5.0); Bun/Creatinine Ratio 21.1 (12.0-20.0); Calcium, Blood 8.3 mg/dL (8.5-10.1); Creatinine, Blood 2.46 mg/dL (0.40-1.00); Globulin, Blood 3.7 g/dL (2.2-4.0); Potassium, Blood 4.1 mmol/L (3.5-5.5); Total Protein, Blood 7.3 g/dL (6.4-8.2)
[2023-09-03 12:26] LABS: Source, Urine Clean Catch
[2023-09-03 12:29] LABS: Appearance, Urine Cloudy (Clear); Bilirubin, Urine Neg (Neg); Blood, Urine 5+ (Neg); Color, Urine Yellow (P-Yellow); Glucose Qualitative, Urine Neg (Neg); Ketones, Urine Neg (Neg); Leukocyte Esterase, Urine 2+ (Neg); Nitrite, Urine Neg (Neg); Protein, Urine 1+ (Neg); Specific Gravity, Urine 1.015 (1.003-1.022); Urobilinogen, Urine 1+ (Normal)
[2023-09-03 12:43] LABS: Bacteria Many /hpf; Squamous Epithelial Cells Mod /hpf (Few)
[2023-09-03 12:44] LABS: Amorphous Mod (0-Heavy)
[2023-09-03 14:00] VITALS: BP 118/76
[2023-09-03] MEDS ORDERED: FAMO20 PO (14:04)
[2023-09-03] MEDS ORDERED: COMPAZINE10 MG PO (14:04)
== END 2023-09-03 14:44 | disposition home or self-care (01) ==
LOC: ER 10:13
PROVIDERS: Emergency Medicine
DX: R11.0 Nausea (principal); R19.7 Diarrhea, unspecified; I12.9 Hypertensive chronic kidney disease with stage 1 through stage 4 chronic kidney disease, or unspecified chronic kidney disease; E11.22 Type 2 diabetes mellitus with diabetic chronic kidney disease; N18.9 Chronic kidney disease, unspecified; E03.9 Hypothyroidism, unspecified; Z88.0 Allergy status to penicillin; Z88.1 Allergy status to other antibiotic agents; Z88.8 Allergy status to other drugs, medicaments and biological substances; Z79.84 Long term (current) use of oral hypoglycemic drugs; Z79.4 Long term (current) use of insulin; Z79.01 Long term (current) use of anticoagulants; Z79.899 Other long term (current) drug therapy
CPT/HCPCS: 71045; 80053; 81001; 84484; 85025; 87077; 87086; 87186; 93005; 93010; 96374; 96375; 96376; 99285-25; J0780; J2405